=== PATIENT | female | born 1975 | race Hispanic/Latino ===

== ENCOUNTER 2023-04-20 23:36 | Emergency (ER) | payer OTHER ==
--- OUTSIDE RECORDS SUMMARY | 2023-04-20 23:41 | XMS REPORT | Continuity of Care Document ---
Author Name Unknown Address [address] [facility] [address] [place] [address] [facility] Address [address] [facility] [address] [place] [address] Care Team Providers Care Digital Content Specialist Name Role Phone PROSPER DALLAS Primary Care Physician Unavailab PROSPER Novoa Attending Clinician Unavailable BELLE CASTELLANOS Attending Clinician BELLE Allen Attending Clinician [facility]OR[facility] Attending Clinician [phone] Pob, [facility] Main Attending Clinician Unavailabl e Doctor Unassigned, [place] Attending Clinician U navailable Nel GUZMAN Attending Clinician Unavailable Nel Mcnally Attending Clinician [phone] KEVIN FUENTES Attending Clinician Unavailable PROSPER DALLAS Admitting Clinician Unavailable Payers Payer Name Policy Type Policy Number Effective Date Expirati on Date Source [facility] [id number] 2022 00:00:00 Problems Condition Name Condition Details Condition Category Status Onset Date Resolution Date Last Treatment Date Treating Clinician Comments Source Type II or unspecifie d type diabetes mellitus with ketoacidos is, uncontroll ed(250.12) Type II or unspecifie d type diabetes mellitus with ketoacidos is, uncontroll ed(250.12) Disease Active 04-11 00:00: 00 [facility] Abnormal uterine bleeding (AUB) Abnormal uterine bleeding (AUB) Disease Active 04-11 00:00: 00 [facility] BMI 36.0-36.9, adult BMI 36.0-36.9, adult Disease Active 02-22 00:00: 00 [facility] Elevated blood pressure reading without diagnosis of hypertensi on Elevated blood pressure reading without diagnosis of hypertensi on Disease Active 02-22 00:00: 00 [facility] Opioid withdrawal Opioid withdrawal Disease Active 05-09 00:00: 00 [facility] Tibial plateau fracture Tibial plateau fracture Disease Active 03-13 00:00: 00 [facility] History of tubal ligation History of tubal ligation Disease Active 2013-02 00:00: 00 [facility] Bipolar affective disorder, depressed Bipolar affective disorder, depressed Disease Active 03-19 00:00: 00 [facility] Allergies, Adverse Reactions, Alerts Allergy Name Allergy Type Status Severity Reaction(s) Onset Date Inactive Date Treating Clinician Comments Source NO KNOWN ALLERGIE S Drug Class Active [facility] Social History Social Habit Start Date Stop Date Quantity Comments [facility] 2023-04-14 00:00:00 2023-04-14 00:00:00 Current drinker of alcohol (finding) [facility] Tobacco use and exposure 2023-02-17 00:00:00 2023-02-17 00:00:00 Smokeless tobacco non-user [facility] Exposure to SARS-CoV-2 (event) 2022-03-16 00:00:00 2022-03-26 21:36:00 Not sure [facility] History of Social function 2018-08-23 00:00:00 2018-08-23 00:00:00 [facility] Alcohol Comment 2018-02-22 00:00:00 2018-02-22 00:00:00 occasionally [facility] History of tobacco use 2017-08-13 00:00:00 Cigarette Smoker [facility] Sex Assigned At 1975 00:00:00 1975 00:00:00 [facility] Smoking Status Start Date Stop Date Source Ex-smoker 2023-02-17 00:00:00 2023-02-17 00:00:00 [facility] Medications Ordered Medication Name Filled Medication Name Start Date Stop Date Current Medication? Ordering Clinician Indication Dosage Frequency Signature (SIG) Comments Components Source metFORMIN 500 mg tablet 2023-0 04-13 00:00: 00 Yes [id number] 500mg Take 1 tablet by mouth in the morning and 1 tablet in the evening. Take with meals. [facility] atorvastati n (LIPITOR) 10 mg tablet 2023-0 04-13 00:00: 00 Yes [id number] 10mg Take 1 tablet by mouth at bedtime. [facility] metFORMIN 500 mg tablet 2023-0 04-13 00:00: 00 Yes [id number] 500mg Take 1 tablet by mouth in the morning and 1 tablet in the evening. Take with meals. [facility] atorvastati n (LIPITOR) 10 mg tablet 2023-0 04-13 00:00: 00 Yes [id number] 10mg Take 1 tablet by mouth at bedtime. [facility] metFORMIN 500 mg tablet 2023-0 04-13 00:00: 00 Yes [id number] 500mg Take 1 tablet by mouth in the morning and 1 tablet in the evening. Take with meals. [facility] atorvastati n (LIPITOR) 10 mg tablet 2023-0 04-13 00:00: 00 Yes [id number] 10mg Take 1 tablet by mouth at bedtime. [facility] metFORMIN 500 mg tablet 4-0 04-13 00:00: 00 Yes [id number] 500mg Take 1 tablet by mouth in the morning and 1 tablet in the evening. Take with meals. [facility] atorvastati n (LIPITOR) 10 mg tablet 4-0 04-13 00:00: 00 Yes [id number] 10mg Take 1 tablet by mouth at bedtime. [facility] metFORMIN 500 mg tablet 4-0 04-13 00:00: 00 Yes [id number] 500mg Take 1 tablet by mouth in the morning and 1 tablet in the evening. Take with meals. [facility] atorvastati n (LIPITOR) 10 mg tablet 0 04-13 00:00: 00 Yes [id number] 10mg Take 1 tablet by mouth at bedtime. [facility] traZODone 50 mg tablet 2023-0 03-17 10:25: 58 Yes 50mg Take 1 tablet by mouth at bedtime. [facility] OLANZapine 20 mg tablet 2023-0 03-17 10:25: 58 Yes 20mg Take 1 tablet by mouth at bedtime. [facility] traZODone 50 mg tablet 2023-0 03-17 10:25: 58 Yes 50mg Take 1 tablet by mouth at bedtime. [facility] OLANZapine 20 mg tablet 2023-0 03-17 10:25: 58 Yes 20mg Take 1 tablet by mouth at bedtime. [facility] traZODone 50 mg tablet 2023-0 03-17 10:25: 58 Yes 50mg Take 1 tablet by mouth at bedtime. [facility] OLANZapine 20 mg tablet 2023-0 03-17 10:25: 58 Yes 20mg Take 1 tablet by mouth at bedtime. [facility] traZODone 50 mg tablet 2023-0 03-17 10:25: 58 Yes 50mg Take 1 tablet by mouth at bedtime. [facility] OLANZapine 20 mg tablet 2023-0 2 10:25: 58 Yes 20mg Take 1 tablet by mouth at bedtime. [facility] traZODone 50 mg tablet 2023-0 03-17 10:25: 58 Yes 50mg Take 1 tablet by mouth at bedtime. [facility] OLANZapine 20 mg tablet 2023-0 2 10:25: 58 Yes 20mg Take 1 tablet by mouth at bedtime. [facility] traZODone 50 mg tablet 2023-0 2 10:25: 58 Yes 50mg Take 1 tablet by mouth at bedtime. [facility] OLANZapine 20 mg tablet 2023-0 2- 10:25: 58 Yes 20mg Take 1 tablet by mouth at bedtime. [facility] traZODone 50 mg tablet 2023-0 03-17 10:25: 58 Yes 50mg Take 1 tablet by mouth at bedtime. [facility] OLANZapine 20 mg tablet 2023-0 03-17 10:25: 58 Yes 20mg Take 1 tablet by mouth at bedtime. [facility] traZODone 50 mg tablet 2023-0 03-17 10:25: 58 Yes 50mg Take 1 tablet by mouth at bedtime. [facility] OLANZapine 20 mg tablet 2023-0 03-17 10:25: 58 Yes 20mg Take 1 tablet by mouth at bedtime. [facility] traZODone 50 mg tablet 2023-0 03-17 10:25: 58 Yes 50mg Take 1 tablet by mouth at bedtime. [facility] OLANZapine 20 mg tablet 2023-0 03-17 10:25: 58 Yes 20mg Take 1 tablet by mouth at bedtime. [facility] traZODone 50 mg tablet 2023-0 03-17 10:25: 58 Yes 50mg Take 1 tablet by mouth at bedtime. [facility] OLANZapine 20 mg tablet 2023-0 03-17 10:25: 58 Yes 20mg Take 1 tablet by mouth at bedtime. [facility] traZODone 50 mg tablet 2023-0 03-17 10:25: 58 Yes 50mg Take 1 tablet by mouth at bedtime. [facility] OLANZapine 20 mg tablet 2023-0 03-17 10:25: 58 Yes 20mg Take 1 tablet by mouth at bedtime. [facility] traZODone 50 mg tablet 2023-0 03-17 10:25: 58 Yes 50mg Take 1 tablet by mouth at bedtime. [facility] OLANZapine 20 mg tablet 2023-0 03-17 10:25: 58 Yes 20mg Take 1 tablet by mouth at bedtime. [facility] traZODone 50 mg tablet 2023-0 03-17 10:25: 58 Yes 50mg Take 1 tablet by mouth at bedtime. [facility] OLANZapine 20 mg tablet 2023-0 03-17 10:25: 58 Yes 20mg Take 1 tablet by mouth at bedtime. [facility] traZODone 50 mg tablet 2023-0 03-17 10:25: 58 Yes 50mg Take 1 tablet by mouth at bedtime. [facility] OLANZapine 20 mg tablet 2023-0 03-17 10:25: 58 Yes 20mg Take 1 tablet by mouth at bedtime. [facility] traZODone 50 mg tablet 2023-0 03-17 10:25: 58 Yes 50mg Take 1 tablet by mouth at bedtime. [facility] OLANZapine 20 mg tablet 2023-0 03-17 10:25: 58 Yes 20mg Take 1 tablet by mouth at bedtime. [facility] amLODIPine 5 mg tablet 0 03-17 00:00: 00 Yes [id number] 5mg Take 1 tablet by mouth in the morning. [facility] amLODIPine 5 mg tablet 2023-0 03-17 00:00: 00 Yes [id number] 5mg Take 1 tablet by mouth in the morning. [facility] amLODIPine 5 mg tablet 2023-0 03-17 00:00: 00 Yes [id number] 5mg Take 1 tablet by mouth in the morning. [facility] amLODIPine 5 mg tablet 2023-0 03-17 00:00: 00 Yes [id number] 5mg Take 1 tablet by mouth in the morning. [facility] amLODIPine 5 mg tablet 2023-0 03-17 00:00: 00 Yes [id number] 5mg Take 1 tablet by mouth in the morning. [facility] amLODIPine 5 mg tablet 2023-0 03-17 00:00: 00 Yes [id number] 5mg Take 1 tablet by mouth in the morning. [facility] amLODIPine 5 mg tablet 2023-0 03-17 00:00: 00 Yes [id number] 5mg Take 1 tablet by mouth in the morning. [facility] amLODIPine 5 mg tablet 2023-0 03-17 00:00: 00 Yes [id number] 5mg Take 1 tablet by mouth in the morning. [facility] amLODIPine 5 mg tablet 03-17 00:00: 00 Yes [id number] 5mg Take 1 tablet by mouth in the morning. [facility] amLODIPine 5 mg tablet 03-17 00:00: 00 Yes [id number] 5mg Take 1 tablet by mouth in the morning. [facility] amLODIPine 5 mg tablet 03-17 00:00: 00 Yes [id number] 5mg Take 1 tablet by mouth in the morning. [facility] amLODIPine 5 mg tablet 03-17 00:00: 00 Yes [id number] 5mg Take 1 tablet by mouth in the morning. [facility] amLODIPine 5 mg tablet 03-17 00:00: 00 Yes [id number] 5mg Take 1 tablet by mouth in the morning. [facility] amLODIPine 5 mg tablet 03-17 00:00: 00 Yes [id number] 5mg Take 1 tablet by mouth in the morning. [facility] amoxicillin 875 mg tablet 03-17 00:00: 00 03-28 05:59 :00 Yes [id number] 875mg Take 1 tablet by mouth in the morning and 1 tablet in the evening. Do all this for 10 days. [facility] amoxicillin 875 mg tablet 03-17 00:00: 00 03-28 05:59 :00 Yes [id number] 875mg Take 1 tablet by mouth in the morning and 1 tablet in the evening. Do all this for 10 days. [facility] amoxicillin 875 mg tablet 03-17 00:00: 00 03-28 05:59 :00 Yes [id number] 875mg Take 1 tablet by mouth in the morning and 1 tablet in the evening. Do all this for 10 days. [facility] amoxicillin 875 mg tablet 03-17 00:00: 00 03-28 05:59 :00 Yes [id number] 875mg Take 1 tablet by mouth in the morning and 1 tablet in the evening. Do all this for 10 days. [facility] amoxicillin 875 mg tablet 03-17 00:00: 00 03-28 05:59 :00 Yes [id number] 875mg Take 1 tablet by mouth in the morning and 1 tablet in the evening. Do all this for 10 days. [facility] acetaminoph en with codeine (TYLENOL-CO DEINE #3 ORAL) 03-07 14:14: 36 Yes Take by mouth. [facility] acetaminoph en with codeine (TYLENOL-CO DEINE #3 ORAL) 03-07 14:14: 36 Yes Take by mouth. [facility] acetaminoph en with codeine (TYLENOL-CO DEINE #3 ORAL) 03-07 14:14: 36 Yes Take by mouth. [facility] acetaminoph en with codeine (TYLENOL-CO DEINE #3 ORAL) 03-07 14:14: 36 Yes Take by mouth. [facility] acetaminoph en with codeine (TYLENOL-CO DEINE #3 ORAL) 03-07 14:14: 36 Yes Take by mouth. [facility] acetaminoph en with codeine (TYLENOL-CO DEINE #3 ORAL) 03-07 14:14: 36 Yes Take by mouth. [facility] acetaminoph en with codeine (TYLENOL-CO DEINE #3 ORAL) 03-07 14:14: 36 Yes Take by mouth. [facility] acetaminoph en with codeine (TYLENOL-CO DEINE #3 ORAL) 03-07 14:14: 36 Yes Take by mouth. [facility] acetaminoph en with codeine (TYLENOL-CO DEINE #3 ORAL) 03-07 14:14: 36 Yes Take by mouth. [facility] acetaminoph en with codeine (TYLENOL-CO DEINE #3 ORAL) 03-07 14:14: 36 Yes Take by mouth. [facility] acetaminoph en with codeine (TYLENOL-CO DEINE #3 ORAL) 03-07 14:14: 36 Yes Take by mouth. [facility] acetaminoph en with codeine (TYLENOL-CO DEINE #3 ORAL) 03-07 14:14: 36 Yes Take by mouth. [facility] acetaminoph en with codeine (TYLENOL-CO DEINE #3 ORAL) 03-07 14:14: 36 Yes Take by mouth. [facility] acetaminoph en with codeine (TYLENOL-CO DEINE #3 ORAL) 03-07 14:14: 36 Yes Take by mouth. [facility] acetaminoph en with codeine (TYLENOL-CO DEINE #3 ORAL) 03-07 14:14: 36 Yes Take by mouth. [facility] acetaminoph en with codeine (TYLENOL-CO DEINE #3 ORAL) 03-07 14:14: 36 Yes Take by mouth. [facility] acetaminoph en with codeine (TYLENOL-CO DEINE #3 ORAL) 03-07 14:14: 36 Yes Take by mouth. [facility] acetaminoph en with codeine (TYLENOL-CO DEINE #3 ORAL) 03-07 14:14: 36 Yes Take by mouth. [facility] traZODone 50 mg tablet 03-07 14:14: 13 Yes 50mg Take 1 tablet by mouth at bedtime. [facility] OLANZapine 20 mg tablet 03-07 14:14: 13 Yes 20mg Take 1 tablet by mouth at bedtime. [facility] traZODone 50 mg tablet 03-07 14:14: 13 Yes 50mg Take 1 tablet by mouth at bedtime. [facility] OLANZapine 20 mg tablet 03-07 14:14: 13 Yes 20mg Take 1 tablet by mouth at bedtime. [facility] traZODone 50 mg tablet 03-07 14:14: 13 Yes 50mg Take 1 tablet by mouth at bedtime. [facility] OLANZapine 20 mg tablet 03-07 14:14: 13 Yes 20mg Take 1 tablet by mouth at bedtime. [facility] traZODone 50 mg tablet 0 03-07 14:14: 13 Yes 50mg Take 1 tablet by mouth at bedtime. [facility] OLANZapine 20 mg tablet 0 03-07 14:14: 13 Yes 20mg Take 1 tablet by mouth at bedtime. [facility] OLANZapine 20 mg tablet 0 02-17 09:56: 19 Yes 20mg Take 1 tablet by mouth at bedtime. [facility] OLANZapine 20 mg tablet 0 02-17 09:56: 19 Yes 20mg Take 1 tablet by mouth at bedtime. [facility] OLANZapine 20 mg tablet 0 02-17 09:56: 19 Yes 20mg Take 1 tablet by mouth at bedtime. [facility] OLANZapine 20 mg tablet 0 02-17 09:56: 19 Yes 20mg Take 1 tablet by mouth at bedtime. [facility] traZODone 50 mg tablet 0 02-17 09:55: 46 Yes 50mg Take 1 tablet by mouth at bedtime. [facility] traZODone 50 mg tablet 0 02-17 09:55: 46 Yes 50mg Take 1 tablet by mouth at bedtime. [facility] traZODone 50 mg tablet 0 02-17 09:55: 46 Yes 50mg Take 1 tablet by mouth at bedtime. [facility] traZODone 50 mg tablet 0 02-17 09:55: 46 Yes 50mg Take 1 tablet by mouth at bedtime. [facility] cefdinir 300 mg capsule 0 02-17 00:00: 00 02-28 05:59 :00 Yes [id number] 300mg Take 1 capsule by mouth every 12 (twelve) hours for 10 days. [facility] cefdinir 300 mg capsule 2023-0 02-17 00:00: 00 02-28 05:59 :00 Yes [id number] 300mg Take 1 capsule by mouth every 12 (twelve) hours for 10 days. [facility] cefdinir 300 mg capsule 1-05 00:00: 00 02-28 05:59 :00 Yes [id number] 300mg Take 1 capsule by mouth every 12 (twelve) hours for 10 days. [facility] cefdinir 300 mg capsule 1-05 00:00: 00 02-28 05:59 :00 No [id number] 300mg Take 1 capsule by mouth every 12 (twelve) hours for 10 days. [facility] amLODIPine (NORVASC) tablet 5 mg 03-27 05:30: 00 03-27 04:38 :00 No 5mg 5 mg, Oral, ONCE, 1 dose, On 03/26/22 at 2330, Routine [facility] ibuprofen (IBU) tablet 600 mg 03-27 04:00: 00 03-27 03:59 :00 No 600mg 600 mg, Oral, ONCE, 1 dose, On 03/26/22 at 2200, NELIA [facility] amoxicillin (TRIMOX) capsule 500 mg 03-27 04:00: 00 03-27 03:58 :00 No 500mg 500 mg, Oral, ONCE, 1 dose, On 03/26/22 at 2200, NELIA
Re ason for Anti-Infec tive: Empiric Therapy for Suspected Infection< br>Empiric Therapy Site: HEENT
D uration of therapy: 5 days [facility] ibuprofen 600 mg tablet 03-26 00:00: 00 Yes [id number] 600mg Take 1 tablet by mouth every 6 (six) hours as needed for Pain (scale 4-6). [facility] amLODIPine 2.5 mg tablet 03-26 00:00: 00 Yes [id number] 2.5mg Take 1 tablet by mouth at bedtime. [facility] ibuprofen 600 mg tablet 03-26 00:00: 00 Yes [id number] 600mg Take 1 tablet by mouth every 6 (six) hours as needed for Pain (scale 4-6). [facility] amLODIPine 2.5 mg tablet 211 00:00: 00 Yes [id number] 2.5mg Take 1 tablet by mouth at bedtime. [facility] ibuprofen 600 mg tablet 03-26 00:00: 00 02-17 00:00 :00 No [id number] 600mg Take 1 tablet by mouth every 6 (six) hours as needed for Pain (scale 4-6). [facility] amLODIPine 2.5 mg tablet 03-26 00:00: 00 02-17 00:00 :00 No [id number] 2.5mg Take 1 tablet by mouth at bedtime. [facility] ibuprofen 600 mg tablet 03-26 00:00: 00 02-17 00:00 :00 No [id number] 600mg Take 1 tablet by mouth every 6 (six) hours as needed for Pain (scale 4-6). [facility] amLODIPine 2.5 mg tablet 03-26 00:00: 00 02-17 00:00 :00 No [id number] 2.5mg Take 1 tablet by mouth at bedtime. [facility] ibuprofen 600 mg tablet 03-26 00:00: 00 02-17 00:00 :00 No [id number] 600mg Take 1 tablet by mouth every 6 (six) hours as needed for Pain (scale 4-6). [facility] amLODIPine 2.5 mg tablet 03-26 00:00: 00 02-17 00:00 :00 No [id number] 2.5mg Take 1 tablet by mouth at bedtime. [facility] amoxicillin 500 mg capsule 0 11 00:00: 00 04-06 05:59 :00 No [id number] 500mg Take 1 capsule by mouth in the morning and 1 capsule at noon and 1 capsule in the evening. Do all this for 10 days. [facility] ketorolac 10 mg tablet 2017-02 00:00: 00 Yes 10mg Take 1 tablet by mouth every 6 (six) hours as needed for Pain (scale 4-6). [facility] cyclobenzap rine 5 mg tablet 2017-02 00:00: 00 Yes 5mg Take 1 tablet by mouth 3 (three) times daily. [facility] ketorolac 10 mg tablet 2017-02 00:00: 00 Yes 10mg Take 1 tablet by mouth every 6 (six) hours as needed for Pain (scale 4-6). [facility] cyclobenzap rine 5 mg tablet 2017-02 00:00: 00 Yes 5mg Take 1 tablet by mouth 3 (three) times daily. [facility] ketorolac 10 mg tablet 2017-02 00:00: 00 Yes 10mg Take 1 tablet by mouth every 6 (six) hours as needed for Pain (scale 4-6). [facility] cyclobenzap rine 5 mg tablet 2017-02 00:00: 00 Yes 5mg Take 1 tablet by mouth 3 (three) times daily. [facility] ketorolac 10 mg tablet 2017-02 00:00: 00 Yes 10mg Take 1 tablet by mouth every 6 (six) hours as needed for Pain (scale 4-6). [facility] cyclobenzap rine 5 mg tablet 2017-02 00:00: 00 Yes 5mg Take 1 tablet by mouth 3 (three) times daily. [facility] ketorolac 10 mg tablet 2017-02 00:00: 00 02-17 00:00 :00 No 10mg Take 1 tablet by mouth every 6 (six) hours as needed for Pain (scale 4-6). [facility] cyclobenzap rine 5 mg tablet 2017-02 00:00: 00 02-17 00:00 :00 No 5mg Take 1 tablet by mouth 3 (three) times daily. [facility] ketorolac 10 mg tablet 2017-02 00:00: 00 02-17 00:00 :00 No 10mg Take 1 tablet by mouth every 6 (six) hours as needed for Pain (scale 4-6). [facility] cyclobenzap rine 5 mg tablet 2017-02 00:00: 02-17 00:00 :00 No 5mg Take 1 tablet by mouth 3 (three) times daily. [facility] ketorolac 10 mg tablet 2017-02 00:00: 02-17 00:00 :00 No 10mg Take 1 tablet by mouth every 6 (six) hours as needed for Pain (scale 4-6). [facility] cyclobenzap rine 5 mg tablet 2017-02 00:00: 00 02-17 00:00 :00 No 5mg Take 1 tablet by mouth 3 (three) times daily. [facility] ibuprofen 800 mg tablet 05-17 00:00: 00 Yes [id number] 800mg Take 1 tablet by mouth 2 (two) times daily with meals. [facility] ibuprofen 800 mg tablet 05-17 00:00: 00 Yes [id number] 800mg Take 1 tablet by mouth 2 (two) times daily with meals. [facility] ibuprofen 800 mg tablet 05-17 00:00: 00 Yes [id number] 800mg Take 1 tablet by mouth 2 (two) times daily with meals. [facility] ibuprofen 800 mg tablet 05-17 00:00: 00 Yes [id number] 800mg Take 1 tablet by mouth 2 (two) times daily with meals. [facility] ibuprofen 800 mg tablet 05-17 00:00: 02-17 00:00 :00 No [id number] 800mg Take 1 tablet by mouth 2 (two) times daily with meals. [facility] ibuprofen 800 mg tablet 05-17 00:00: 00 02-17 00:00 :00 No [id number] 800mg Take 1 tablet by mouth 2 (two) times daily with meals. [facility] ibuprofen 800 mg tablet 05-17 00:00: 00 02-17 00:00 :00 No [id number] 800mg Take 1 tablet by mouth 2 (two) times daily with meals. [facility] risperiDONE (RISPERDAL) 1 mg tablet 2013-02 00:00: 00 Yes 1mg Take 1 Tab by mouth 2 (two) times daily. [facility] escitalopra m oxalate (LEXAPRO) 10 mg tablet 2013-02 00:00: 00 Yes 10mg Take 1 Tab by mouth daily. [facility] divalproex (DEPAKOTE) 500 mg EC tablet 2013-02 00:00: 00 Yes 1500mg Take 3 Tabs by mouth at bedtime. [facility] risperiDONE (RISPERDAL) 1 mg tablet 2013-02 00:00: 00 Yes 1mg Take 1 Tab by mouth 2 (two) times daily. [facility] escitalopra m oxalate (LEXAPRO) 10 mg tablet 2013-02 00:00: 00 Yes 10mg Take 1 Tab by mouth daily. [facility] escitalopra m oxalate (LEXAPRO) 10 mg tablet 2013-02 00:00: 00 Yes 10mg Take 1 Tab by mouth daily. [facility] divalproex (DEPAKOTE) 500 mg EC tablet 2013-02 00:00: 00 Yes 1500mg Take 3 Tabs by mouth at bedtime. [facility] escitalopra m oxalate (LEXAPRO) 10 mg tablet 2013-02 00:00: 00 Yes 10mg Take 1 Tab by mouth daily. [facility] escitalopra m oxalate (LEXAPRO) 10 mg tablet 2013-02 00:00: 00 Yes 10mg Take 1 Tab by mouth daily. [facility] escitalopra m oxalate (LEXAPRO) 10 mg tablet 2013-02 00:00: 00 Yes 10mg Take 1 Tab by mouth daily. [facility] escitalopra m oxalate (LEXAPRO) 10 mg tablet 2013-02 00:00: 00 Yes 10mg Take 1 Tab by mouth daily. [facility] escitalopra m oxalate (LEXAPRO) 10 mg tablet 2013-02 00:00: 00 Yes 10mg Take 1 Tab by mouth daily. [facility] escitalopra m oxalate (LEXAPRO) 10 mg tablet 2013-02 00:00: 00 Yes 10mg Take 1 Tab by mouth daily. [facility] escitalopra m oxalate (LEXAPRO) 10 mg tablet 2013-02 00:00: 00 Yes 10mg Take 1 Tab by mouth daily. [facility] Services risperiDONE (RISPERDAL) 1 mg tablet 2013-02 00:00: 00 Yes 1mg Take 1 Tab by mouth 2 (two) times daily. [facility] escitalopra m oxalate (LEXAPRO) 10 mg tablet 2013-02 00:00: 00 Yes 10mg Take 1 Tab by mouth daily. [facility] divalproex (DEPAKOTE) 500 mg EC tablet 2013-02 00:00: 00 Yes 1500mg Take 3 Tabs by mouth at bedtime. [facility] escitalopra m oxalate (LEXAPRO) 10 mg tablet 2013-02 00:00: 00 Yes 10mg Take 1 Tab by mouth daily. [facility] escitalopra m oxalate (LEXAPRO) 10 mg tablet 2013-02 00:00: 00 Yes 10mg Take 1 Tab by mouth daily. [facility] escitalopra m oxalate (LEXAPRO) 10 mg tablet 2013-02 00:00: 00 Yes 10mg Take 1 Tab by mouth daily. [facility] escitalopra m oxalate (LEXAPRO) 10 mg tablet 2013-02 00:00: 00 Yes 10mg Take 1 Tab by mouth daily. [facility] escitalopra m oxalate (LEXAPRO) 10 mg tablet 2013-02 00:00: 00 Yes 10mg Take 1 Tab by mouth daily. [facility] escitalopra m oxalate (LEXAPRO) 10 mg tablet 2013-02 00:00: 00 Yes 10mg Take 1 Tab by mouth daily. [facility] escitalopra m oxalate (LEXAPRO) 10 mg tablet 2013-02 00:00: 00 Yes 10mg Take 1 Tab by mouth daily. [facility] escitalopra m oxalate (LEXAPRO) 10 mg tablet 2013-02 00:00: 00 Yes 10mg Take 1 Tab by mouth daily. [facility] escitalopra m oxalate (LEXAPRO) 10 mg tablet 2013-02 00:00: 00 Yes 10mg Take 1 Tab by mouth daily. [facility] escitalopra m oxalate (LEXAPRO) 10 mg tablet 2013-02 00:00: 00 Yes 10mg Take 1 Tab by mouth daily. [facility] escitalopra m oxalate (LEXAPRO) 10 mg tablet 2013-02 00:00: 00 Yes 10mg Take 1 Tab by mouth daily. [facility] escitalopra m oxalate (LEXAPRO) 10 mg tablet 2013-02 00:00: 00 Yes 10mg Take 1 Tab by mouth daily. [facility] escitalopra m oxalate (LEXAPRO) 10 mg tablet 2013-02 00:00: 00 Yes 10mg Take 1 Tab by mouth daily. [facility] escitalopra m oxalate (LEXAPRO) 10 mg tablet 2013-02 00:00: 00 Yes 10mg Take 1 Tab by mouth daily. [facility] escitalopra m oxalate (LEXAPRO) 10 mg tablet 2013-02 00:00: 00 Yes 10mg Take 1 Tab by mouth daily. [facility] risperiDONE (RISPERDAL) 1 mg tablet 2013-02 00:00: 00 Yes 1mg Take 1 Tab by mouth 2 (two) times daily. [facility] escitalopra m oxalate (LEXAPRO) 10 mg tablet 2013-02 00:00: 00 Yes 10mg Take 1 Tab by mouth daily. [facility] divalproex (DEPAKOTE) 500 mg EC tablet 2013-02 00:00: 00 Yes 1500mg Take 3 Tabs by mouth at bedtime. [facility] risperiDONE (RISPERDAL) 1 mg tablet 2013-02 00:00: 00 02-17 00:00 :00 No 1mg Take 1 Tab by mouth 2 (two) times daily. [facility] divalproex (DEPAKOTE) 500 mg EC tablet 2013-02 00:00: 00 02-17 00:00 :00 No 1500mg Take 3 Tabs by mouth at bedtime. [facility] risperiDONE (RISPERDAL) 1 mg tablet 2013-02 00:00: 00 02-17 00:00 :00 No 1mg Take 1 Tab by mouth 2 (two) times daily. [facility] divalproex (DEPAKOTE) 500 mg EC tablet 2013-02 00:00: 00 02-17 00:00 :00 No 1500mg Take 3 Tabs by mouth at bedtime. [facility] risperiDONE (RISPERDAL) 1 mg tablet 2013-02 00:00: 00 02-17 00:00 :00 No 1mg Take 1 Tab by mouth 2 (two) times daily. [facility] divalproex (DEPAKOTE) 500 mg EC tablet 2013-02 00:00: 00 02-17 00:00 :00 No 1500mg Take 3 Tabs by mouth at bedtime. [facility] Immunizations Ordered Immunization Name Filled Immunization Name Date Status Comments Source Influenza Virus Vaccine Quad IM Multi-dose 6+ MO 2013-12-26 00:00:00 Completed [facility] Influenza Virus Vaccine Quad IM Multi-dose 6+ MO 2013-12-26 00:00:00 Completed [facility] Influenza Virus Vaccine Quad IM Multi-dose 6+ MO 2013-12-26 00:00:00 Completed [facility] Tdap 2013-12-12 00:00:00 Completed [facility] Tdap 2013-12-12 00:00:00 Completed [facility] TDAP 2013-12-12 00:00:00 Completed [facility] Rubella 2011-02-21 00:00:00 Completed [facility] Rubella 2011-02-21 00:00:00 Completed [facility] Rubella 2011-02-21 00:00:00 Completed [facility] Influenza Virus Vaccine 2010-04-24 00:00:00 Completed [facility] Influenza Virus Vaccine 2010-04-24 00:00:00 Completed [facility] Influenza Virus Vaccine 2010-04-24 00:00:00 Completed [facility] Td 2009-02-24 00:00:00 Completed [facility] Varicella (varivax)(chicken pox) 2009-02-24 00:00:00 Completed [facility] Td 2009-02-24 00:00:00 Completed [facility] Varicella (varivax)(chicken pox) 2009-02-24 00:00:00 Completed [facility] TD, NOS 2009-02-24 00:00:00 Completed [facility] Varicella (varivax)(chicken pox) 2009-02-24 00:00:00 Completed [facility] Influenza Virus Vaccine Unknown Completed [facility] Rubella Unknown Completed [facility] TD, NOS Unknown Completed [facility] Varicella (varivax)(chicken pox) Unknown Completed [facility] TDAP Unknown Completed [facility] Influenza Virus Vaccine Quad IM Multi-dose 6+ MO Unknown Completed [facility] Influenza Virus Vaccine Unknown Completed [facility] Rubella Unknown Completed [facility] TD, NOS Unknown Completed [facility] Varicella (varivax)(chicken pox) Unknown Completed [facility] TDAP Unknown Completed [facility] Influenza Virus Vaccine Quad IM Multi-dose 6+ MO Unknown Completed [facility] Influenza Virus Vaccine Unknown Completed [facility] Rubella Unknown Completed [facility] TD, NOS Unknown Completed [facility] Varicella (varivax)(chicken pox) Unknown Completed [facility] TDAP Unknown Completed [facility] Influenza Virus Vaccine Quad IM Multi-dose 6+ MO Unknown Completed [facility] Influenza Virus Vaccine Unknown Completed [facility] Rubella Unknown Completed [facility] TD, NOS Unknown Completed [facility] Varicella (varivax)(chicken pox) Unknown Completed [facility] TDAP Unknown Completed [facility] Influenza Virus Vaccine Quad IM Multi-dose 6+ MO Unknown Completed [facility] Influenza Virus Vaccine Unknown Completed [facility] Rubella Unknown Completed [facility] TD, NOS Unknown Completed [facility] Varicella (varivax)(chicken pox) Unknown Completed [facility] TDAP Unknown Completed [facility] Influenza Virus Vaccine Quad IM Multi-dose 6+ MO Unknown Completed [facility] Influenza Virus Vaccine Unknown Completed [facility] Rubella Unknown Completed [facility] TD, NOS Unknown Completed [facility] Varicella (varivax)(chicken pox) Unknown Completed [facility] TDAP Unknown Completed [facility] Influenza Virus Vaccine Quad IM Multi-dose 6+ MO Unknown Completed [facility] Influenza Virus Vaccine Unknown Completed [facility] Rubella Unknown Completed [facility] TD, NOS Unknown Completed [facility] Varicella (varivax)(chicken pox) Unknown Completed [facility] TDAP Unknown Completed [facility] Influenza Virus Vaccine Quad IM Multi-dose 6+ MO Unknown Completed [facility] Influenza Virus Vaccine Unknown Completed [facility] Rubella Unknown Completed [facility] TD, NOS Unknown Completed [facility] Varicella (varivax)(chicken pox) Unknown Completed [facility] TDAP Unknown Completed [facility] Influenza Virus Vaccine Quad IM Multi-dose 6+ MO Unknown Completed [facility] Influenza Virus Vaccine Unknown Completed [facility] Rubella Unknown Completed [facility] TD, NOS Unknown Completed [facility] Varicella (varivax)(chicken pox) Unknown Completed [facility] TDAP Unknown Completed [facility] Influenza Virus Vaccine Quad IM Multi-dose 6+ MO Unknown Completed [facility] Influenza Virus Vaccine Unknown Completed [facility] Rubella Unknown Completed [facility] TD, NOS Unknown Completed [facility] Varicella (varivax)(chicken pox) Unknown Completed [facility] TDAP Unknown Completed [facility] Influenza Virus Vaccine Quad IM Multi-dose 6+ MO Unknown Completed [facility] Influenza Virus Vaccine Unknown Completed [facility] Rubella Unknown Completed [facility] TD, NOS Unknown Completed [facility] Varicella (varivax)(chicken pox) Unknown Completed [facility] TDAP Unknown Completed [facility] Influenza Virus Vaccine Quad IM Multi-dose 6+ MO Unknown Completed [facility] Influenza Virus Vaccine Unknown Completed [facility] Rubella Unknown Completed [facility] TD, NOS Unknown Completed [facility] Varicella (varivax)(chicken pox) Unknown Completed [facility] TDAP Unknown Completed [facility] Influenza Virus Vaccine Quad IM Multi-dose 6+ MO Unknown Completed [facility] Influenza Virus Vaccine Unknown Completed [facility] Rubella Unknown Completed [facility] TD, NOS Unknown Completed [facility] Varicella (varivax)(chicken pox) Unknown Completed [facility] TDAP Unknown Completed [facility] Influenza Virus Vaccine Quad IM Multi-dose 6+ MO Unknown Completed [facility] Influenza Virus Vaccine Unknown Completed [facility] Rubella Unknown Completed [facility] TD, NOS Unknown Completed [facility] Varicella (varivax)(chicken pox) Unknown Completed [facility] TDAP Unknown Completed [facility] Influenza Virus Vaccine Quad IM Multi-dose 6+ MO Unknown Completed [facility] Influenza Virus Vaccine Unknown Completed [facility] Rubella Unknown Completed [facility] TD, NOS Unknown Completed [facility] Varicella (varivax)(chicken pox) Unknown Completed [facility] TDAP Unknown Completed [facility] Influenza Virus Vaccine Quad IM Multi-dose 6+ MO Unknown Completed [facility] Influenza Virus Vaccine Unknown Completed [facility] Rubella Unknown Completed [facility] TD, NOS Unknown Completed [facility] Varicella (varivax)(chicken pox) Unknown Completed [facility] TDAP Unknown Completed [facility] Influenza Virus Vaccine Quad IM Multi-dose 6+ MO Unknown Completed [facility] Influenza Virus Vaccine Unknown Completed [facility] Rubella Unknown Completed [facility] TD, NOS Unknown Completed [facility] Varicella (varivax)(chicken pox) Unknown Completed [facility] TDAP Unknown Completed [facility] Influenza Virus Vaccine Quad IM Multi-dose 6+ MO Unknown Completed [facility] Influenza Virus Vaccine Unknown Completed [facility] Rubella Unknown Completed [facility] TD, NOS Unknown Completed [facility] Varicella (varivax)(chicken pox) Unknown Completed [facility] TDAP Unknown Completed [facility] Influenza Virus Vaccine Quad IM Multi-dose 6+ MO Unknown Completed [facility] Influenza Virus Vaccine Unknown Completed [facility] Rubella Unknown Completed [facility] TD, NOS Unknown Completed [facility] Varicella (varivax)(chicken pox) Unknown Completed [facility] TDAP Unknown Completed [facility] Influenza Virus Vaccine Quad IM Multi-dose 6+ MO Unknown Completed [facility] Influenza Virus Vaccine Unknown Completed [facility] Rubella Unknown Completed [facility] TD, NOS Unknown Completed [facility] Varicella (varivax)(chicken pox) Unknown Completed [facility] TDAP Unknown Completed [facility] Influenza Virus Vaccine Quad IM Multi-dose 6+ MO Unknown Completed [facility] Influenza Virus Vaccine Unknown Completed [facility] Rubella Unknown Completed [facility] TD, NOS Unknown Completed [facility] Varicella (varivax)(chicken pox) Unknown Completed [facility] TDAP Unknown Completed [facility] Influenza Virus Vaccine Quad IM Multi-dose 6+ MO Unknown Completed [facility] Influenza Virus Vaccine Unknown Completed [facility] Rubella Unknown Completed [facility] TD, NOS Unknown Completed [facility] Varicella (varivax)(chicken pox) Unknown Completed [facility] TDAP Unknown Completed [facility] Influenza Virus Vaccine Quad IM Multi-dose 6+ MO Unknown Completed [facility] Influenza Virus Vaccine Unknown Completed [facility] Rubella Unknown Completed [facility] TD, NOS Unknown Completed [facility] Varicella (varivax)(chicken pox) Unknown Completed [facility] TDAP Unknown Completed [facility] Influenza Virus Vaccine Quad IM Multi-dose 6+ MO Unknown Completed [facility] Influenza Virus Vaccine Unknown Completed [facility] Rubella Unknown Completed [facility] TD, NOS Unknown Completed [facility] Varicella (varivax)(chicken pox) Unknown Completed [facility] TDAP Unknown Completed [facility] Influenza Virus Vaccine Quad IM Multi-dose 6+ MO Unknown Completed [facility] Vital Signs Vital Name Observation Time Observation Value Comments S ource Systolic blood pressure 2023-04-14 15:45:00 132 mm[Hg] [facility] Diastolic blood pressure 2023-04-14 15:45:00 84 mm[Hg] [facility] Heart rate 2023-04-14 15:45:00 82 /min [facility] Body temperature 2023-04-14 15:45:00 36.39 Fatuma [facility] Respiratory rate 2023-04-14 15:45:00 18 /min [facility] Body height 2023-04-14 15:45:00 147[facility]3 [facility] 2023-04-14 15:45:00 78.019 kg [facility] BMI 2023-04-14 15:45:00 35.95 kg/m2 [facility] Oxygen saturation in Arterial blood by Pulse oximetry 2023-04-14 15:45:00 99 /min [facility] Systolic blood pressure 2023-04-11 16:08:00 128 mm[Hg] [facility] Diastolic blood pressure 2023-04-11 16:08:00 88 mm[Hg] [facility] Heart rate 2023-04-11 16:08:00 73 /min [facility] Body height 2023-04-11 16:08:00 147.3 cm [facility] Body weight 2023-04-11 16:08:00 78.155 kg [facility] BMI 2023-04-11 16:08:00 36.01 kg/m2 [facility] Systolic blood pressure 2023-03-17 16:17:00 144 mm[Hg] [facility] Diastolic blood pressure 2023-03-17 16:17:00 98 mm[Hg] [facility] Heart rate 2023-03-17 16:17:00 80 /min [facility] Body temperature 2023-03-17 16:17:00 36.67 Fatuma [facility] Respiratory rate 2023-03-17 16:17:00 17 /min [facility] Body height 2023-03-17 16:17:00 147[facility] 2023-03-17 16:17:00 76.567 kg [facility] BMI 2023-03-17 16:17:00 35.28 kg/m2 [facility] Oxygen saturation in Arterial blood by Pulse oximetry 2023-03-17 16:17:00 97 /min [facility] Systolic blood pressure 2023-03-07 20:23:00 160 mm[Hg] [facility] Diastolic blood pressure 2023-03-07 20:23:00 96 mm[Hg] [facility] Heart rate 2023-03-07 20:13:00 69 /min [facility] Respiratory rate 2023-03-07 20:13:00 18 /min [facility] Body height 2023-03-07 20:13:[address] [facility] Body weight 2023-03-07 20:13:[address] [facility] BMI 2023-03-07 20:13:00 35.95 kg/m2 [facility] Systolic blood pressure 2023-02-17 15:48:00 145 mm[Hg] [facility] Diastolic blood pressure 2023-02-17 15:48:00 97 mm[Hg] [facility] Heart rate 2023-02-17 15:45:00 75 /min [facility] Body temperature 2023-02-17 15:45:00 36.78 Fatuma [facility] Respiratory rate 2023-02-17 15:45:00 18 /min [facility] Body height 2023-02-17 15:45:00 147.3 cm [facility] Body weight 2023-02-17 15:45:[address] [facility] BMI 2023-02-17 15:45:00 35.15 kg/m2 [facility] Oxygen saturation in Arterial blood by Pulse oximetry 2023-02-17 15:45:00 99 /min [facility] Systolic blood pressure 2022-03-27 04:42:47 156 mm[Hg] [facility] Diastolic blood pressure 2022-03-27 04:42:47 109 mm[Hg] [facility] Heart rate 2022-03-27 04:42:47 81 /min [facility] Respiratory rate 2022-03-27 04:42:47 16 /min [facility] Oxygen saturation in Arterial blood by Pulse oximetry 2022-03-27 04:42:47 99 /min [place] [facility] Body temperature 2022-03-27 03:36:00 37.22 Fatuma [facility] Body height 2022-03-27 03:36:[address] [facility] Body weight 2022-03-27 03:36:[address] [facility] BMI 2022-03-27 03:36:00 36.58 kg/m2 [facility] Procedures Procedure Date / Time Performed Performing Clinician Source BI SCREENING TOMOSYNTHESIS BILATERAL 2023-04-13 16:33:07 [place] [facility] FREE T4 2023-03-17 17:01:00 [facility] THYROID STIMULATING HORMONE 2023-03-17 17:01:00 Prosper [place] [facility] COMP. METABOLIC PANEL (32692) 2023-03-17 17:01:00 Prosper [place] [facility] LIPID PANEL (90180)(TOTAL CHOLESTEROL, TRIGLYCERIDES, HDL) 2023-03-17 17:01:00 Prosper [place] [facility] CBC WITH DIFF 2023-03-17 17:01:[address] [facility] GLYCOSYLATED HEMOGLOBIN (A1C) 2023-03-17 17:01:00 Prosper [place] [facility] URINALYSIS 2023-03-17 17:01:00 Prosper [place] [facility] MAGNESIUM 2023-03-17 17:01:00 [place]per [place] [facility] POCT MOLECULAR STREP 2023-03-17 16:24:00 Yary [place] [facility] URINE CULTURE 2023-02-17 15:56:[address] [facility] CONSENT/REFUSAL FOR DIAGNOSIS AND TREATMENT 2023-02-17 15:32:36 Doctor Unassigned, [place] [facility] POCT URINALYSIS 2023-02-17 00:00[facility] PRIVACY PRACTICES 2022-03-27 03:31:10 Doctor Unassigned, [place] [facility] CONSENT/REFUSAL FOR DIAGNOSIS AND TREATMENT 2022-03-27 03:30:37 Doctor Unassigned, [place] [facility] AUTHORIZATION FOR RELEASE OF PHI 2019-05-13 05:01:00 Doctor Unassigned, [place] [facility] AUTHORIZATION FOR RELEASE OF PHI 2019-04-04 06:01:00 Doctor Unassigned, [place] [facility] Encounters Start Date/Time End Date/Time Encounter Type Admission Type Attending [facility] Care Department Encounter ID Source 2023-07-17 09:00:00 2023-07-17 09:00:00 Outpatient PROSPER PIZANO [facility] [id number] [facility] 2023-04-25 00:00:00 2023-04-25 00:00:00 Outpatient PROSPER PIZANO [facility] [id number] [facility] 2023-04-24 00:00:00 2023-04-24 00:00:00 Outpatient R PUGA-ROSHAN S, BELLE PUGA-ROSHAN S, BELLE [facility] [id number] [facility] 2023-04-17 00:00:00 2023-04-17 00:00:00 Outpatient R PUGA-ROSHAN S, BELLE PUGA-ROSHAN S, BELLE [facility] [id number] [facility] 2023-04-17 00:00:00 2023-04-17 00:00:00 Telephone Prosper [place] [facility] 1.2.840.114 350.1.13.10 4.2.7.2.686 [id number] [facility] 2023-04-14 11:15:00 2023-04-14 11:30:00 Author'S Agent Visit Pob, Adc Lab Main [place] [facility] 1.2.840.114 350.1.13.10 4.2.7.2.686 [id number] [facility] 2023-04-14 10:00:00 2023-04-14 10:00:00 Office Visit Prosper [place] [facility] 1.2.840.114 350.1.13.10 4.2.7.2.686 [id number] [facility] 2023-04-14 10:00:00 2023-04-14 09:56:26 [facility] [id number] [facility] 2023-04-14 00:00:00 2023-04-14 00:00:00 Telephone Prosper [place] [facility] 1..840.114 350.1.13.10 4.2.7.2.686 [id number] [facility] 2023-04-13 09:57:46 2023-04-13 23:59:00 [facility] [id number] [facility] 2023-04-13 09:40:00 2023-04-13 23:59:00 Hospital Encounter Prosper [place] [facility] 1..840.114 350.1.13.10 4.2.7.2.686 [id number] [facility] 2023-04-11 10:30:00 2023-04-11 10:30:00 [address] [place] [facility] 1.840.114 350.1.13.10 4.2.7.2.686 [id number] [facility] 2023-04-11 10:30:00 2023-04-11 10:15:26 Outpatient R BELLE AUGUSTINE MARISOL [facility] [id number] [facility] 2023-04-06 00:00:00 2023-04-06 00:00:[address] [place] [facility] 1.2840.114 350.1.13.10 4.2.7.2.686 [id number] [facility] 2023-03-24 00:00:00 2023-03-24 00:00:00 Outpatient R JOSUE DALLASSSICA [facility] [id number] [facility] 2023-03-17 10:50:07 2023-03-17 23:59:00 [facility] [id number] [facility] 2023-03-17 10:50:07 2023-03-17 23:59:00 Hospital Encounter Prosper [place] [facility] 1.2840.114 350.1.13.10 4.2.7.2.686 [id number] [facility] 2023-03-17 10:45:00 2023-03-17 11:00:00 Author'S Agent Visit Pob, Ad[facility] 1.2.840.114 350.1.13.10 4.2.7.2.686 [id number] [facility] 2023-03-17 10:00:00 2023-03-17 10:36:32 Office Visit Prosper [place] [facility] 1.2.840.114 350.1.13.10 4.2.7.2.686 [id number] [facility] 2023-03-13 00:00:00 2023-03-13 00:00:00 [facility] 1.2.840.114 350.1.13.10 4.2.7.2.686 [id number] [facility] 2023-03-07 14:00:00 2023-03-07 14:48:32 Outpatient R BELLE AUGUSTINE MARISOL [facility] [id number] [facility] 2023-03-07 14:00:00 2023-03-07 14:48:32 [facility] 1.0.114 350.1.13.10 4.2.7.2.686 [id number] [facility] 2023-03-03 00:00:00 2023-03-03 00:00:00 Patient Secure Msg Doctor Unassigned, [place] [facility] 1..114 350.1.13.10 4.2.7.2.686 [id number] [facility] 2023-02-17 09:30:00 2023-02-17 10:02:17 Outpatient R TODD PROSPER [facility] [id number] [facility] 2023-02-17 09:30:00 2023-02-17 10:02:17 Office Visit Todd Prosper [facility] 1..114 350.1.13.10 4.2.7.2.686 [id number] [facility] 2023-02-17 00:00:00 2023-02-17 00:00:00 Orders Only Doctor Unassigned, [place] [facility] 1.0.114 350.1.13.10 4.2.7.2.686 [id number] [facility] 2023-02-17 00:00:00 2023-02-17 00:00:00 Telephone [place]per [place] [facility] 1.0.114 350.1.13.10 4.2.7.2.686 [id number] [facility] 2022-03-26 21:40:00 2022-03-26 23:09:00 Emergency X Nel GUZMAN [facility] ERT [id number] [facility] 2022-03-26 21:40:00 2022-03-26 23:09:00 Emergency Nel Guzman [facility] 1.2.840.114 350.1.13.10 4.2.7.2.686 [id number] [facility] 2019-05-13 00:00:00 2019-05-13 00:00:00 Orders Only Doctor Unassigned, [place] [facility] 1.2.840.114 350.1.13.10 4.2.7.2.686 [id number] [facility] 2019-04-04 00:00:00 2019-04-04 00:00:00 Orders Only Doctor Unassigned, [place] [facility] 1.2.840.114 350.1.13.10 4.2.7.2.686 [id number] [facility] 2018-12-24 00:00:00 2018-12-24 00:00:00 Outpatient KEVIN SCOTT [facility] NUT [id number] [facility] Results Test Description Test Time Test Comments Results Resul t Comments Source BI SCREENING TOMOSYNTHESIS BILATERAL 2023-03-17 9 16:56:53 Examination:BI SCREENING TOMOSYNTHESIS BILATERAL History:Patient is 47 year old and is seen for: ?Screening for breast cancer. Computer-aided detection (CAD) utilized. Comparisons : None available Findings:The breasts are almost entirely fatty. LeftThere is a 4 mm x 4 mm equal density, round mass with circumscribed margins seen in the upper outer quadrant of the left breast in the posterior depth, 8.1 cm from the nipple. RightThere is no evidence of suspicious masses, calcifications, or other abnormal findings in the right breast. Impression:Small mass in the upper outer left breast is most likely an intramammary lymph node. ?Further evaluation is recommended for confirmation Recommendation:Spo t compression with possible ultrasound - LeftAnnual mammographic follow-up - Right BI-RADS Category: Left: 0 - Incomplete: Needs Additional Imaging EvaluationRight: 1 - NegativeOverall: 0 - Incomplete: Needs Additional [facility]63-68 19:00:13 * Test Item Value Reference Range Interpretation Comme nts TSH (test code = 6179009529) 1.23 0.45-4.70 Lab Interpretation (test cod e = 49278-1) Normal [facility] [id number] 18:46:13* Test Item Value Reference Range Interpretation Comme nts FREE T4 (test code = 2799164188) 1.29 0.78-2.20 Lab Interpretation (test cod e = 71332-1) Normal [facility] [id number] 18:46:13* Test Item Value Reference Range Interpretation Comme nts FREE T4 (test code = 1685918680) 1.29 0.78-2.20 Lab Interpretation (test cod e = 64358-2) Normal [facility] (71209)(Total Cholesterol, Triglycerides, HDL)2023-03-17 18:45:32* Test Item Value Reference Range Interpretation Comme nts CHOL (test code = 2158824188) 233 mg/dL 120-200 H HDL (test code = 5764853581) 54 mg/dL >=50 HDLC RATIO (test code = 4834027078) 4.3 <=4.5 TRIG (test code = 8336835082) 174 mg/dL 30-170 H LDL CHOL (test code = 66328-6) 144 mg/dL <=160 VLDL (test code = 5204986878) 35 mg/dL 5-60 Lab Interpretation (test cod e = 21026-3) Abnormal [facility] (57000)(Total Cholesterol, Triglycerides, HDL)2023-03-17 18:45:32* Test Item Value Reference Range Interpretation Comme nts CHOL (test code = 9215759390) 233 mg/dL 120-200 H HDL (test code = 9712158840) 54 mg/dL >=50 HDLC RATIO (test code = 5718004202) 4.3 <=4.5 TRIG (test code = 3860757239) 174 mg/dL 30-170 H LDL CHOL (test code = 52482-0) 144 mg/dL <=160 VLDL (test code = 3829869456) 35 mg/dL 5-60 Lab Interpretation (test cod e = 81012-0) Abnormal [facility] CenterMagnesium2024-02-02 18:45:12* Test Item Value Reference Range Interpretation Comme nts MAGNESIUM (test code = 4954923686) 1.7 mg/dL 1.7-2.4 Lab Interpretation (test cod e = 43321-6) Normal [facility] Center[facility] Metabolic Panel (79499)2023-03-17 18:44:51* Test Item Value Reference Range Interpretation Comme nts NA (test code = 2642679078) 140 mmol/L 135-145 K (test code = 9798307872) 3.6 mmol/L 3.5-5.0 CL (test code = 0743080034) 108 mmol/L 98-108 CO2 TOTAL (test code = 7114535198) 24 mmol/L 23-31 AGAP (test code = 0742728672) 8 2-16 BUN (test code = 1118796154) 11 mg/dL 7-23 GLUCOSE (test code = 4581327052) 156 mg/dL 70-110 H CREATININE (test code = 8502787965) 0.52 mg/dL 0.50-1.04 TOTAL BILI (test code = 7740972362) 0.9 mg/dL 0.1-1.1 CALCIUM (test code = 4994891617) 9.9 mg/dL 8.6-10.6 T PROTEIN (test code = 9546571030) 8.0 g/dL 6.3-8.2 ALBUMIN (test code = 1057344016) 4.5 g/dL 3.5-5.0 ALK PHOS (test code = 7616602981) 74 U/L 34-122 ALTv (test code = 1742-6) 18 U/L 5-35 AST(SGOT) (test code = 1227292018) 19 U/L 13-40 eGFR (test code = 64942-2) 116.9 mL/min/1.73m2 CKD-EPI eGFR (2020). Assuming creatinine has been stable day-to-day for at least three months, the eGFR indicates Category G1 (>= 90 mL/min/1.73 m2) Lab Interpretation (test code = 46754-2) Abnormal [facility] Met[facility] Panel (34595)2023-03-17 18:44:51* Test Item Value Reference Range Interpretation Comme nts NA (test code = 9010108282) 140 mmol/L 135-145 K (test code = 8741338651) 3.6 mmol/L 3.5-5.0 CL (test code = 3741807049) 108 mmol/L 98-108 CO2 TOTAL (test code = 7136734676) 24 mmol/L 23-31 AGAP (test code = 5404527501) 8 2-16 BUN (test code = 0011563338) 11 mg/dL 7-23 GLUCOSE (test code = 3825410663) 156 mg/dL 70-110 H CREATININE (test code = 0967301813) 0.52 mg/dL 0.50-1.04 TOTAL BILI (test code = 1614405147) 0.9 mg/dL 0.1-1.1 CALCIUM (test code = 2699268454) 9.9 mg/dL 8.6-10.6 T PROTEIN (test code = 6343401539) 8.0 g/dL 6.3-8.2 ALBUMIN (test code = 9564121689) 4.5 g/dL 3.5-5.0 ALK PHOS (test code = 7954744376) 74 U/L 34-122 ALTv (test code = 1742-6) 18 U/L 5-35 AST(SGOT) (test code = 0981122243) 19 U/L 13-40 eGFR (test code = 58216-3) 116.9 mL/min/1.73m2 CKD-EPI eGFR (2020). Assuming creatinine has been stable day-to-day for at least three months, the eGFR indicates Category G1 (>= 90 mL/min/1.73 m2) Lab Interpretation (test code = 43739-8) Abnormal [facility] CenterGlycosylated Hemoglobin (A1C)2023-03-17 18:25:17* Test Item Value Reference Range Interpretation Comme nts HGB A1C (test code = 4548-4) 7.0 % 4.0-5.7 H VERONA (test code = VERONA) Reference RangesNormal: <5.7%Prediabetes: 5.7 - 6.4%Diabetes: > 6.5% Lab Interpretation (test code = 24703-8) Abnormal [facility] CenterGlycosylated Hemoglobin (A1C)2023-03-17 18:25:17* Test Item Value Reference Range Interpretation Comme nts HGB A1C (test code = 4548-4) 7.0 % 4.0-5.7 H VERONA (test code = VERONA) Reference RangesNormal: <5.7%Prediabetes: 5.7 - 6.4%Diabetes: > 6.5% Lab Interpretation (test code = 00887-7) Abnormal [facility] CenterCbc with Lanl0591-70-14 17:38:00* Test Item Value Reference Range Interpretation Comme nts WBC (test code = 6690-2) 7.36 4.30-11.10 RBC (test code = 789-8) 4.18 3.93-5.25 HGB (test code = 718-7) 13.5 g/dL 11.6-15.0 HCT (test code = 4544-3) 38.6 % 35.7-45.2 MCV (test code = 787-2) 92.3 fL 80.6-95.5 MCH (test code = 785-6) 32.3 pg 25.9-32.8 MCHC (test code = 786-4) 35.0 g/dL 31.6-35.1 RDW-SD (test code = 94851-2) 40.7 fL 39.0-49.9 RDW-CV (test code = 788-0) 12.1 % 12.0-15.5 PLT (test code = 777-3) 248 166-358 MPV (test code = 51033-4) 10.7 fL 9.5-12.9 NRBC/100 WBC (test code = 1105901899) 0.0 0.0-10.0 NRBC x10^3 (test code = 3369094270) See_Comment [Automated messa ge] The system which generated this result transmitted reference range: 10*3/?L. The reference range was not used to interpret this result as normal/abnormal. GRAN MAT (NEUT) % (test code = 770-8) 69.8 % IMM GRAN % (test code = 2136028296) 0.30 % LYMPH % (test code = 736-9) 24.3 % MONO % (test code = 5905-5) 4.1 % EOS % (test code = 713-8) 1.1 % BASO % (test code = 706-2) 0.4 % GRAN MAT x10^3(ANC) (test code = 7499511620) 5.14 10*3/uL 1.88-7.09 IMM GRAN x10^3 (test code = 8573102842) 0.00-0.06 LYMPH x10^3 (test code = 731-0) 1.79 10*3/uL 1.32-3.29 MONO x10^3 (test code = 742-7) 0.30 10*3/uL 0.33-0.92 L EOS x10^3 (test code = 711-2) 0.08 10*3/uL 0.03-0.39 BASO x10^3 (test code = 704-7) 0.03 10*3/uL 0.01-0.07 Lab Interpretation (test code = 98182-2) Abnormal [facility] with Vafa5253-91-82 17:38:00* Test Item Value Reference Range Interpretation Comme nts WBC (test code = 6690-2) 7.36 4.30-11.10 RBC (test code = 789-8) 4.18 3.93-5.25 HGB (test code = 718-7) 13.5 g/dL 11.6-15.0 HCT (test code = 4544-3) 38.6 % 35.7-45.2 MCV (test code = 787-2) 92.3 fL 80.6-95.5 MCH (test code = 785-6) 32.3 pg 25.9-32.8 MCHC (test code = 786-4) 35.0 g/dL 31.6-35.1 RDW-SD (test code = 11144-3) 40.7 fL 39.0-49.9 RDW-CV (test code = 788-0) 12.1 % 12.0-15.5 PLT (test code = 777-3) 248 166-358 MPV (test code = 07157-8) 10.7 fL 9.5-12.9 NRBC/100 WBC (test code = 6651371975) 0.0 0.0-10.0 NRBC x10^3 (test code = 4588558886) See_Comment [Automated messa ge] The system which generated this result transmitted reference range: 10*3/?L. The reference range was not used to interpret this result as normal/abnormal. GRAN MAT (NEUT) % (test code = 770-8) 69.8 % IMM GRAN % (test code = 2014612941) 0.30 % LYMPH % (test code = 736-9) 24.3 % MONO % (test code = 5905-5) 4.1 % EOS % (test code = 713-8) 1.1 % BASO % (test code = 706-2) 0.4 % GRAN MAT x10^3(ANC) (test code = 3207689205) 5.14 10*3/uL 1.88-7.09 IMM GRAN x10^3 (test code = 8904820481) 0.00-0.06 LYMPH x10^3 (test code = 731-0) 1.79 10*3/uL 1.32-3.29 MONO x10^3 (test code = 742-7) 0.30 10*3/uL 0.33-0.92 L EOS x10^3 (test code = 711-2) 0.08 10*3/uL 0.03-0.39 BASO x10^3 (test code = 704-7) 0.03 10*3/uL 0.01-0.07 Lab Interpretation (test code = 68108-5) Abnormal [facility] MOLECULAR LLCHP0907-07-19 16:31:50* Test Item Value Reference Range Interpretation Comme nts POCT Molecular Strep (test c ode = 70821-4) Negative Negative Lab Interpretation (test cod e = 96916-7) Normal [facility] MOLECULAR [id number] 16:31:50* Test Item Value Reference Range Interpretation Comme nts POCT Molecular Strep (test c ode = 29940-8) Negative Negative Lab Interpretation (test cod e = 06290-4) Normal [facility] Urinalysis W Specific Ctpuuuk3240-68-61 15:55:00* Test Item Value Reference Range Interpretation Comme nts POCT U SP GRAV (test code = 3255) 1.020 mg/dl 1.005-1.025 POCT PH U (test code = 3254) 5 mg/dl 5-8 POCT U LEUK EST (test code = 3263) ++ Negative - Negative POCT U NIT (test code = 3262) Negative Negative - Negati ve POCT U PROT (test code = 3259) +/30 Negative - Negative POCT U GLU (test code = 3256) Negative Negative - Negati ve POCT U KETONE (test code = 3258) Negative Negative - Negative POCT U UROBILI (test code = 3260) 0.2 mg/dl 0.2-1 POCT U BILI (test code = 3261) Negative Negative - Negative POCT U BLD (test code = 3257) Trace Negative - Negati ve POCT U COLOR (test code = 3266) Dark Yellow POCT U APPEAR (test code = 3267) Hazy Lab Interpretation (test cod e = 35463-4) Abnormal [facility] Urinalysis W Specific Arwxvds6560-78-49 15:55:00* Test Item Value Reference Range Interpretation Comme nts POCT U SP GRAV (test code = 3255) 1.020 mg/dl 1.005-1.025 POCT PH U (test code = 3254) 5 mg/dl 5-8 POCT U LEUK EST (test code = 3263) ++ Negative - Negative POCT U NIT (test code = 3262) Negative Negative - Negati ve POCT U PROT (test code = 3259) +/30 Negative - Negative POCT U GLU (test code = 3256) Negative Negative - Negati ve POCT U KETONE (test code = 3258) Negative Negative - Negative POCT U UROBILI (test code = 3260) 0.2 mg/dl 0.2-1 POCT U BILI (test code = 3261) Negative Negative - Negative POCT U BLD (test code = 3257) Trace Negative - Negati ve POCT U COLOR (test code = 3266) Dark Yellow POCT U APPEAR (test code = 3267) Hazy Lab Interpretation (test cod e = 90561-5) Abnormal [facility] W Specific Bwusxzk5271-42-49 15:55:00* Test Item Value Reference Range Interpretation Comme nts POCT U SP GRAV (test code = 3255) 1.020 mg/dl 1.005-1.025 POCT PH U (test code = 3254) 5 mg/dl 5-8 POCT U LEUK EST (test code = 3263) ++ Negative - Negative POCT U NIT (test code = 3262) Negative Negative - Negati ve POCT U PROT (test code = 3259) +/30 Negative - Negative POCT U GLU (test code = 3256) Negative Negative - Negati ve POCT U KETONE (test code = 3258) Negative Negative - Negative POCT U UROBILI (test code = 3260) 0.2 mg/dl 0.2-1 POCT U BILI (test code = 3261) Negative Negative - Negative POCT U BLD (test code = 3257) Trace Negative - Negati ve POCT U COLOR (test code = 3266) Dark Yellow POCT U APPEAR (test code = 3267) Hazy Lab Interpretation (test cod e = 11907-9) Abnormal [facility] CenterRPR Bcjhvvenzuz8427-21-35 16:15:49* Test Item Value Reference Range Interpretation Comme nts RPR Qual (test code = RPR Qual) Non-Reactive Non-Reactive Reactive Control (test code = Reactive Control) Reactive Weak Reactive Control (test code = Weak Reactive Control) Weak Reactive Non-Reactive Control (test c ode = Non-Reactive Control) Non-Reactive Lot # (test code = Lot #) [id number] N Expiration Dt (test code = Expiration Dt) 10.31.20 N Thyroid Stimulating Winjynm7665-74-93 21:53:18* Test Item Value Reference Range Interpretation Comme nts TSH (test code = TSH) 3.260 mIU/mL 0.270-4.200 Lipid Tcgtm9872-10-08 21:49:06* Test Item Value Reference Range Interpretation Comme nts Cholesterol Total (test code = Cholesterol Total) 242 mg/dL 0-200 H RISK OF HEART DISEASEPublished by [place] Heart Association Analyte Optimal Borderline Increased RiskCHOL <200 200-239 >240TRIG <150 150-199 >200HDL Male >60 <40HDL Female >60 <50LDL <100 130-159 >160LDL Near optimal is 100-129 Triglycerides (test code = Triglycerides) 193 mg/dL 9-200 HDL (test code = HDL) 51 mg/dL 50-60 LDL (test code = LDL) 152 mg/dL 0-130 H The equation being used in this calculation is LDL = (Chol - HDL) - (Trig / 5) VLDL (test code = VLDL) 39 mg/dL 5-40 The equation verna ng used in this calculation is VLDL = Trig / 5 Chol/HDL (test code = Chol/HDL) 4.7 ratio 0.0-4.4 H LDL/HDL Ratio (test code = LDL/HDL Ratio) 3 N The equati on being used in this calculation is LDL/HDL Ratio=LDL Calc/HDL Chol HCG Qualitative [id number] 21:36:21* Test Item Value Reference Range Interpretation Comme nts HCG, Serum Qual (test code = HCG, Serum Qual) Negative Lot # (test code = Lot #) [id number] N Expiration Dt (test code = Expiration Dt) 2020-04-12 N Neg Control (test code = Neg Control) Negative Pos Control (test code = Pos Control) Positive Internal QC (test code = Int ernal QC) Acceptable Urine Drug Pmshqs8425-85-48 15:28:09* Test Item Value Reference Range Interpretation Comme nts Amphetamine Screen Ur (test code = Amphetamine Screen Ur) Negative Negative Barbiturate Screen Ur (test code = Barbiturate Screen Ur) Negative Negative Benzodiazepines Ur (test code = Benzodiazepines Ur) Negative Negative Cocaine Screen Ur (test code = Cocaine Screen Ur) Negative Negative U Methadone Scr (test code = U Methadone Scr) Negative Negative Opiate Screen Ur (test code = Opiate Screen Ur) Negative Negative U PCP Scrn (test code = U PCP Scrn) Negative Negative Cannabinoid Screen Ur (test code = Cannabinoid Screen Ur) Negative Negative U TCA (test code = U TCA) Negative Negative The results of a ll drug screen tests are only preliminary. Clinical consideration and professional judgment should be applied to any drug of abuse test result, particularly when preliminary positive results are obtained. Please order a separate confirmatory test if desired. Comprehensive Metabolic Ggduf6061-20-68 14:57:03* Test Item Value Reference Range Interpretation Comme nts Sodium Level (test code = So dium Level) 136.0 mmol/L 135.0-145.0 Potassium Level (test code = Potassium Level) 3.7 mmol/L 3.5-5.1 Chloride Level (test code = Chloride Level) 99 mmol/L 98-105 CO2 (test code = CO2) 23 mmol/L 22-29 Anion Gap (test code = Anion Gap) 14 mmol/L 7-16 BUN (test code = BUN) 7.40 mg/dL 6.00-20.00 Creatinine Level (test code = Creatinine Level) 0.70 mg/dL 0.50-0.90 BUN/Creat Ratio (test code = BUN/Creat Ratio) 11 N Glucose Level (test code = Glucose Level) 159 mg/dL 70-115 H Calcium Level (test code = Calcium Level) 10.0 mg/dL 8.3-10.5 Alk Phos (test code = Alk Phos) 68 U/L 35-104 Bilirubin Total (test code = Bilirubin Total) 0.3 mg/dL 0.1-0.9 Albumin Level (test code = Albumin Level) 4.9 g/dL 3.5-5.2 Protein Total (test code = Protein Total) 7.8 g/dL 6.4-8.3 ALT (test code = ALT) 32 U/L 1-33 AST (test code = AST) 21 U/L 1-32 Globulin (test code = Globulin) 2.9 g/dL 2.9-3.1 A/G Ratio (test code = A/G Ratio) 1.7 ratio N Comprehensive Metabolic [id number] 14:57:03* Test Item Value Reference Range Interpretation Comme nts Sodium Level (test code = Sodium Level) 136.0 mmol/L 135.0-145.0 Potassium Level (test code = Potassium Level) 3.7 mmol/L 3.5-5.1 Chloride Level (test code = Chloride Level) 99 mmol/L 98-105 CO2 (test code = CO2) 23 mmol/L 22-29 Anion Gap (test code = Anion Gap) 14 mmol/L 7-16 BUN (test code = BUN) 7.40 mg/dL 6.00-20.00 Creatinine Level (test code = Creatinine Level) 0.70 mg/dL 0.50-0.90 BUN/Creat Ratio (test code = BUN/Creat Ratio) 11 N Glucose Level (test code = Glucose Level) 159 mg/dL 70-115 H Calcium Level (test code = Calcium Level) 10.0 mg/dL 8.3-10.5 Alk Phos (test code = Alk Phos) 68 U/L 35-104 Bilirubin Total (test code = Bilirubin Total) 0.3 mg/dL 0.1-0.9 Albumin Level (test code = Albumin Level) 4.9 g/dL 3.5-5.2 Protein Total (test code = Protein Total) 7.8 g/dL 6.4-8.3 ALT (test code = ALT) 32 U/L 1-33 AST (test code = AST) 21 U/L 1-32 Globulin (test code = Globulin) 2.9 g/dL 2.9-3.1 A/G Ratio (test code = A/G Ratio) 1.7 ratio N eGFR AA (test code = eGFR AA) >60 mL/min/1.73 m2 N eGFR (estimated Glomerular Filtration Rate) is an estimated value, calculated from the patient's serum creatinine using the MDRD equation. It is NOT the patient's actual GFR. The eGFR provides a more clinically useful measure of kidney disease than serum creatinine alone.This calculation takes sex and race into account, if the information is provided. If the race is not provided, and the patient is -[place], multiply by 1.212. If sex is not provided, and the patient is female, multiply by 0.742. Results for patients <18 years of age have not been validated by the MDRD study and should be interpreted with caution. eGFR Result Interpretation:eGFR > or = 60 is in the Normal RangeeGFR < 60 may mean kidney diseaseeGFR < 15 may mean kidney failure Ranges recommended by the National Kidney Foundation, http://nkdep.nih.gov Alcohol Ffzvn6381-64-15 14:57:03* Test Item Value Reference Range Interpretation Comme nts Ethanol Level (test code = Ethanol Level) <0.00 g/dL 0.00-0.01 Intoxicated 0.08 0 g/dL or more Ethanol Inst (test code = Ethanol Inst) <0 N Comprehensive Metabolic Nlvpp6240-39-16 14:57:03* Test Item Value Reference Range Interpretation Comme nts Sodium Level (test code = Sodium Level) 136.0 mmol/L 135.0-145.0 Potassium Level (test code = Potassium Level) 3.7 mmol/L 3.5-5.1 Chloride Level (test code = Chloride Level) 99 mmol/L 98-105 CO2 (test code = CO2) 23 mmol/L 22-29 Anion Gap (test code = Anion Gap) 14 mmol/L 7-16 BUN (test code = BUN) 7.40 mg/dL 6.00-20.00 Creatinine Level (test code = Creatinine Level) 0.70 mg/dL 0.50-0.90 BUN/Creat Ratio (test code = BUN/Creat Ratio) 11 N Glucose Level (test code = Glucose Level) 159 mg/dL 70-115 H Calcium Level (test code = Calcium Level) 10.0 mg/dL 8.3-10.5 Alk Phos (test code = Alk Phos) 68 U/L 35-104 Bilirubin Total (test code = Bilirubin Total) 0.3 mg/dL 0.1-0.9 Albumin Level (test code = Albumin Level) 4.9 g/dL 3.5-5.2 Protein Total (test code = Protein Total) 7.8 g/dL 6.4-8.3 ALT (test code = ALT) 32 U/L 1-33 AST (test code = AST) 21 U/L 1-32 Globulin (test code = Globulin) 2.9 g/dL 2.9-3.1 A/G Ratio (test code = A/G Ratio) 1.7 ratio N eGFR AA (test code = eGFR AA) >60 mL/min/1.73 m2 N eGFR (estimated Glomerular Filtration Rate) is an estimated value, calculated from the patient's serum creatinine using the MDRD equation. It is NOT the patient's actual GFR. The eGFR provides a more clinically useful measure of kidney disease than serum creatinine alone.This calculation takes sex and race into account, if the information is provided. If the race is not provided, and the patient is -[place], multiply by 1.212. If sex is not provided, and the patient is female, multiply by 0.742. Results for patients <18 years of age have not been validated by the MDRD study and should be interpreted with caution. eGFR Result Interpretation:eGFR > or = 60 is in the Normal RangeeGFR < 60 may mean kidney diseaseeGFR < 15 may mean kidney failure Ranges recommended by the National Kidney Foundation, http://nkdep.nih.gov eGFR Non-AA (test code = eGFR Non-AA) >60.00 mL/min/1.73 m2 N eGFR (estimated Glomerular Filtration Rate) is an estimated value, calculated from the patient's serum creatinine using the MDRD equation. It is NOT the patient's actual GFR. The eGFR provides a more clinically useful measure of kidney disease than serum creatinine alone.This calculation takes sex and race into account, if the information is provided. If the race is not provided, and the patient is -[place], multiply by 1.212. If sex is not provided, and the patient is female, multiply by 0.742. Results for patients <18 years of age have not been validated by the MDRD study and should be interpreted with caution. eGFR Result Interpretation:eGFR > or = 60 is in the Normal RangeeGFR < 60 may mean kidney diseaseeGFR < 15 may mean kidney failure Ranges recommended by the National Kidney Foundation, http://nkdep.nih.gov Urinalysis with Microscopic if hrdszhwft6628-35-40 14:56:39* Test Item Value Reference Range Interpretation Comme nts UA Color (test code = UA Color) STRAW Yellow UA Appear (test code = UA Appear) CLEAR Clear UA pH (test code = UA pH) 5 N UA Spec Grav (test code = UA Spec Grav) 1.003 1.001-1.035 UA Glucose (test code = UA Glucose) NEG Negative UA Ketones (test code = UA Ketones) NEG Negative UA Blood (test code = UA Blood) NEG Negative UA Protein (test code = UA Protein) NEG Negative UA Bili (test code = UA Bili) NEG Negative UA Urobilinogen (test code = UA Urobilinogen) 0.2 mg/dL N UA Nitrite (test code = UA Nitrite) NEG Negative UA Leuk Est (test code = UA Leuk Est) NEG Negative UA Micro Ind? (test code = UA Micro Ind?) Not Indicated Not Indicated Result cre ated by rule GL_SJM_UA_MICRO_IN D Complete Blood Count with Boyskxfhbjzy8179-16-83 14:43:33* Test Item Value Reference Range Interpretation Comme nts WBC (test code = WBC) 5.9 x10 4.4-10.5 RBC (test code = RBC) 4.36 x10 3.75-5.20 Hgb (test code = Hgb) 14.2 g/dL 12.2-14.8 MCV (test code = MCV) 93.60 fL 80.00-100.00 Hct (test code = Hct) 40.8 % 36.5-44.4 MCHC (test code = MCHC) 34.80 g/dL 32.00-37.50 RDW CV (test code = RDW CV) 11.7 % 11.5-14.5 MCH (test code = MCH) 32.6 pg 27.0-32.5 H Platelets (test code = Platelets) 267.0 x10 140.0-440.0 MPV (test code = MPV) 10.3 fL N Slide Review (test code = Slide Review) Auto Auto Result crea gricelda by GL_SJM_SLIDE_REV_AUTO nRBC (test code = nRBC) 0 N NRBC Abs (test code = NRBC Abs) 0.00 x10 N IPF (test code = IPF) 0 % N Automated Pzchurmopvov4922-25-92 14:43:33* Test Item Value Reference Range Interpretation Comme nts Neutro Auto (test code = Brett tro Auto) 55.2 % 36.0-70.0 Lymph Auto (test code = Lymph Auto) 37.0 % 12.0-44.0 [place] Auto (test code = [place] Auto) 5.6 % 0.0-11.0 Eos, Auto (test code = Eos, Auto) 1.7 % 0.0-7.0 Basophil Auto (test code = B asophil Auto) 0.3 % 0.0-2.0 Neutro Absolute (test code = Neutro Absolute) 3.3 x10 1.6-7.4 Lymph Absolute (test code = Lymph Absolute) 2.19 x10 .50-4.60 [place] Absolute (test code = M ena Absolute) .33 x10 .00-1.20 Eos Absolute (test code = Eo s Absolute) 0.10 x10 0.00-0.74 Baso Absolute (test code = B aso Absolute) 0.02 x10 0.00-0.21 IG Zqlnl0212-95-24 14:43:33* Test Item Value Reference Range Interpretation Comme nts IG (test code = IG) 0.2 % 0.0-5.0 IG Abs (test code = IG Abs) 0 x10 N Notes Date/Time Note Provider Source 2023-04-18 15:06:33 Xr/dJTdSvHGIX1ALdXUQ+wIGwK7vQz1l1a TsarEE4cvPOyk3GoVXnt+LbNlczqLW9562 -03-05T15:06:33 3rd attempt to call patient, no answer, letter has been sent out to patient to give us a call back to discuss mammogram results. Will close encounter. 54413-4Caeawlwgt encounter ElqhKN9388-62-14K99:09:31Telephone encounter NoteTXT1.2.840.264970.1.13.104.2.7 .2.852339|[id number] for patient frmr73545-7WjasOEZTSMWAKRZWdujtkbw d C-CDA narrative [id number] M Serrano MA[address] YzabAtidsmbzoZuqjirjwoQRVE87331775 69KNYYCCUONWNYWMPZMHEMZP4817-78-27 T15:09:311.2.840.867401.1.72.3.15| 1.2.840.023445.1.13.104.2.7.2.7278 79_[id number] Dasha Durham MA [facility] 2023-04-18 11:13:25 tDKloYT82bgYhxg0twde5Oppsg8RwSSN2C W5Jy+12QEnmxMqakv3CYi0Ad6JKxqK0604 -03-05T11:13:25 2ns attempt to contact patient, no answer, call will not go through. Unable to LVM. 09228-7Gkyoexxrb encounter HtxpYI4933-32-29Z57:14:14Telephone encounter NoteTXT1.2.840.827384.1.13.104.2.7 .2.306712|[id number] for patient ipfj12626-1ArfvZFBCCGFMCRFMgxgtqvm d C-CDA narrative text[id number] 08GGRMZYLDXUNQRTQPBGQDML1155-19-98 T11:14:141.2.840.217634.1.72.3.15| 1.2.840.895864.1.13.104.2.7.2.7278 79_[id number] [facility] 2023-04-17 14:04:58 nb+V+ngqeDa0zTpfDCTBx6ra6RqbjM0Pa/ 80fXUUiquAgR0kPRxC8nfCveB5mmkR3071 -03-04T14:04:58 Images from the original note were not included.Medical record consent received from [facility] faxed to [facility]. 89863-5Totzanfhs encounter YpyyOZ6607-47-48J10:06:15Telephone encounter NoteTXT1.2.840.731186.1.13.104.2.7 .2.046535|[id number] for patient lzkn70514-2CeodRIHYFAHTBXKAusjpdft d C-CDA narrative [id number] D [address]enUT[id number] 59KSDHIZVVSQTQYNBDXXKPGC8780-70-43 T14:06:151.2.840.177622.1.72.3.15| 1.2.840.979268.1.13.104.2.7.2.7278 79_[id number] Princess Wolf [facility] 2023-04-14 16:48:38 MrlSBVpRLa06QREIfp7vjhAJuiIWrozNHe 1Jf4s5fbPAL2Nt9PjG/TAjX7WH4UCX2444 -03-01T16:48:38 Attempted to call patient @ [phone] call will not go through. Called [phone] phone kept ringing, not able to reach patient. Isabel Moya MA 04/14/2023 4:51 PM 19942-2Xdaprbmei encounter JehpOP9334-79-85L64:51:28Telephone encounter NoteTXT1.2.840.370316.1.13.104.2.7 .2.381375|8613783353CNYintozhvp for patient urdc18038-5WwyqXHXLANYJAYRFscvztqb d C-CDA narrative trry054516293Kqtejhg Davila MA[address] OdyxPpopqkdvkPmbzaympwIGMZ26750429 30CKBYDNOOQOXHZBAWBYHDHL1262-66-19 T16:51:281.2.840.463233.1.72.3.15| 1.2.840.080648.1.13.104.2.7.2.7278 79_[id number] Isabel Moya MA [facility] 2023-04-14 16:27:07 9kNZqr71436FcbptGMY7aUAOY4H9w/fn9f 19vFWFcVlB6NeAMWxOqrnqWrrUA+pp60562023T16:27:07 Impression:Small mass in the upper outer left breast is most likely an intramammary lymph node. Further evaluation is recommended for confirmationRecommendation:Spot compression with possible ultrasound - LeftAnnual mammographic follow-up - RightBI-RADS Category:Left: 0 - Incomplete: Needs Additional Imaging EvaluationRight: 1 - NegativeOverall: 0 - Incomplete: Needs Additional Imaging EvaluationI have placed ordersThe number for scheduling of imaging through [facility] is [phone]. 82159-1Eknzwuzco encounter YfuiYH0156-86-23I85:28:03Telephone encounter NoteTXT1.2.840.385534.1.13.104.2.7 .2.970628|[id number] for patient bqpg85035-5FzdrSIFNODWHTPVCjrputml d C-CDA narrative text[address] ZdmdI[id number] 38AVQQLCMXCYMCNKXLOCSXMZ1731-43-15 T16:28:031.2.840.426000.1.72.3.15| 1.2.840.034381.1.13.104.2.7.2.7278 79_[id number] [facility] 2023-04-14 11:15:00 YD/0CPnd+oa8bD46M2luERmMAdNQyrnmPS qudF50HaeGrfDNato0CxPVEXqN0cLS9133 -03-01T11:15:00 Images from the original note were not included.Venipuncture collection performed by clean technique on the left anticubitus. Total of 1 attempts were made. Slight pressure and a bandage/dressing were applied to the site(s). The patient experienced no complications. The following specimens were processed according to instructions and sent to [facility] laboratories per lab order on 04/14/2023:LT BLUESST 1REDLAV 1PPTDK GREEN (LiHep)DK GREEN (SodH)GRAYDK BLUE (K2)DK BLUE (S)ACDBlood CultureNIPT/NTDPatient has been identified by and name and was provided with cup, antiseptic towelette, and clean catch instructions. 1 urine specimen(s) sent.Unpreserved 1Urine CultureAptima tubeOther urine 19563-8Axuxe LrdtUY8637-27-10V79:33:56Nurse NoteTXT1.2.840.384710.1.13.104.2.7 .2.281534|[id number] for patient qvkz38981-8Hjwop NoteLNNARRATIVEFormatted C-CDA narrative text[id number] 10QDNVSFWYETPROJRQCPIFAM4095-72-48 T10:33:561.2.840.977432.1.72.3.15| 1.2.840.464200.1.13.104.2.7.2.7278 79_[id number] [facility] 2023-04-06 12:06:09 lVqorOKAh04gaVA01jQkuO4Mv0jzsqqFz2 +Au/uDPQuF+0940ALq9tOyGyG5FcEL5562 -02-22T12:06:09 Dr. Puga:Order TSH with Free T4, FSH, Estrogen, Progesterone levels.Orders placed through [employer].Patient notified.Kwaku Becerra RN 04/06/2023 12:19 PM 70641-9Wqxwlwnrw encounter AvaeZP4129-20-83A86:19:54Telephone encounter NoteTXT1.2.840.720852.1.13.104.2.7 .2.446484|[id number] for patient jrpp69146-4GkqnZPCSRNZZBLAGsrmsgrj d C-CDA narrative hwya461315465Lxvbgsn Becerra [id number] 11XRUDXTCCYJHJJMPKBFDDHP6846-50-15 T12:19:541.2.840.013977.1.72.3.15| 1.2.840.118579.1.13.104.2.7.2.7278 79_[id number] Kwaku Becerra [facility] 2023-04-06 11:04:57 2Qx81NIWn7z/HNqml1dyEYAoKy9IfbZlE7 y+e01ZKhf5y5d/NwAjIELPOZ8NC6wu5997 -02-22T11:04:[address] orders since pelvic US and labs done outside system. 29188-2Prbbbcyju encounter FszzIK0371-44-42M34:05:13Telephone encounter NoteTXT1.2.840.520386.1.13.104.2.7 .2.415340|9014850371ZVBrovhtebk for patient nhgh73872-9PtvyPHUPGWKCBWDSlegdywp d C-CDA narrative textOG-OBSTETRICS & GYNECOLOGY STAFFOG-OB[facility]RICS [facility] GYNECOLOGY [id number] 12JQRHUSUHARYVNQDOUPBDJI0636-89-50 T11:05:131.2.840.031982.1.72.3.15| 1.2.840.724191.1.13.104.2.7.2.7278 79_[id number] OG-OBSTETRICS [facility] GYNECOLOGY [facility] 2023-04-06 10:26:13 VjaHMZYXcR7Ukv/4DXXgnYph6of7Jr4d6Y 2DrFd00s5SeFl2e1Z06MTDeca55/JX7002T10:26:13 Last OV note does not have written orders.Will route to provider for order clarification.Kwaku Becerra RN 04/06/2023 10:26 AM 90838-7Aipuufjxj encounter HtrjQZ8401-26-12S77:27:30Telephone encounter NoteTXT1.2.840.466982.1.13.104.2.7 .2.608514|4394971602FHTurzensdn for patient eheh80844-0AbkqYOZIXPZQXDABjqabmng d C-CDA narrative [id number] 08QVEMWIYDVUQYVUESFBYMVF5205-57-36 T10:27:301.2.840.372388.1.72.3.15| 1.2.840.471625.1.13.104.2.7.2.7278 79_[id number] [facility] 2023-04-06 09:47:51 VUkPxA++zMtFRmhRNiKzGQ80u1kzn/16ar waND0mThdc5ui8Q3EQSYvOiajQUSVQ4643 -02-22T09:47:51 Patient need lab orders faxed to [facility] she misplaced orders that were given to her, she has a temporary phone at the moment so call [phone]. 28239-0Xkylneqmb encounter KqzeZW2736-80-76M94:49:26Telephone encounter NoteTXT1.2.840.619063.1.13.104.2.7 .2.226961|0851455328KVFnzochntf for patient wjxb32010-7DyoeNOMGMHGUWPNSheyrtlk d C-CDA narrative ltyl851375847Qprfo Armand[address]vdGal[address]onGalvestonTXTX[address] 29LTOQMHMIUYYCKRLXVAPZSM8402-18-36 T09:49:261.2.840.663902.1.72.3.15| 1.2.840.928241.1.13.104.2.7.2.7278 79_[id number] Claudette Acuna [facility] 2023-03-17 10:45:00 gZuX5JutcU78Ry/vwwmorjQ1ZtnAcBiuRZ 2SP18dp4lTjPFjNfQdM5aE3pum4Ex31716 -02-02T10:45:00 Images from the original note were not included.Venipuncture collection performed by clean technique on the left anticubitus. Total of 1 attempts were made. Slight pressure and a bandage/dressing were applied to the site(s). The patient experienced no complications. The following specimens were processed according to instructions and sent to [facility] laboratories per lab order on 03/17/2023:LT BLUESST 2REDLAV 2PPTDK GREEN (LiHep)DK GREEN (SodH)GRAYDK BLUE (K2)DK BLUE (S)ACDBlood CultureNIPT/NTDPatient has been identified by and name and was provided with cup, antiseptic towelette, and clean catch instructions. 2 urine specimen(s) sent.Unpreserved 1Urine CultureAptima tube 1Other urine 55945-0Logal RewwYD0351-01-15H27:01:46Nurse NoteTXT1.2.840.819392.1.13.104.2.7 .2.900093|[id number] for patient whaq09366-2Gepte NoteLNNARRATIVEFormatted C-CDA narrative text[address] NyxzI[id number] 27XVGGNMCBCJZOECPZMVUVZB2102-96-70 T11:01:461.2.840.171523.1.72.3.15| 1.2.840.082391.1.13.104.2.7.2.7278 79_[id number] [facility] 2023-03-13 13:49:42 JQgy5ZVcAhsmS04hBxwmVRa+UTBDr3PryE 0/aRcOWggp9LtSp0mspqjP6CP7C2sF7540 -01-29T13:49:42 Patient will wait til she gets seen by GARETT Mendez. 86922-0Msrbivjyf encounter GtciAF9955-08-96S31:50:36Telephone encounter NoteTXT1.2.840.739945.1.13.104.2.7 .2.606848|5560400672YXWjxcmxutg for patient qqop98575-8BgldSOUAMSCKLYQVnqbvgst d C-CDA narrative xjxu768138375Bsqmiv M Serrano MA[address]onTXTX[address] 34ZCGOTQYQJFHQIMOCJCGHPE1114-87-87 T13:50:361.2.840.630484.1.72.3.15| 1.2.840.564769.1.13.104.2.7.2.7278 79_[id number] Dasha Durham MA [facility] 2023-03-13 12:08:49 LgZlfL31h+dG0zVPddshCkyvvd8SCoFZKy tSuZZHkz2AiRe3iz15U3/Fu6fmQiG98471 -01-29T12:08:49 Clayton Almaguer is a 47 year old female that states she received a letter from the clinic. The pt's spouse lost the letter so the pt had been calling. The pt stated that because she already scheduled for 03/17/23, she will wait until then to speak with Ms. Dallas. 38102-7Ogbbfudhx encounter DdovLC8383-85-82M73:10:52Telephone encounter NoteTXT1.2.840.823681.1.13.104.2.7 .2.882937|1803753241XFLeojxqkhk for patient uoiy43439-9VsnxCSRDBQNWOSOQbsblmgv d C-CDA narrative glhw120367039Ucva [address] 30TEOPGHQFWZNMVRSAMOLEXS2767-59-91 T12:10:521.2.840.317941.1.72.3.15| 1.2.840.513915.1.13.104.2.7.2.7278 79[facility][id number] [facility] 16:15:26 rYbS/XG4C5Mb4hsXF2xdx6lMM4mUb3NE34 ko332KJqoG7o4S6o3V7x2Tp74w8PJk6370 -01-05T16:15:26 Attempted to reach , daughter answered phone left message. 73743-2Gimtmihbj encounter NqowRV6383-33-56Y95:15:54Telephone encounter NoteTXT1.2.840.662134.1.13.104.2.7 .2.516758|0036842753AOGicgywjxj for patient zkrx93888-1DwvvWUFARKNZFZGHmidcvvq d C-CDA narrative wano232173650Qgvi N Rodriguez[address]TXTX[address] 28BIBNWKUUBMBUVZMUDDXYJC8947-41-56 T16:15:541.2.840.246734.1.72.3.15| 1.2.840.163857.1.13.104.2.7.2.7278 79_[id number] Sami Acuna [facility] 2023-02-17 15:30:37 /Jakob/uUHewtpkYAIBLRvamieHHQMIM N3Yra+3C6TjtDH3slI77/ZvTSzzg5C5707 -01-05T15:30:37 Can you let patient know to stop by our lab for urine testing for STD. Best to come first thing in the AM with first void. The lab did not have enough urine for all testing, was only able to obtain culture. Still needs testing for STD 64382-3Klgugdvpi encounter YlvsYP8171-13-46I80:31:46Telephone encounter NoteTXT1.2.840.520398.1.13.104.2.7 .2.697855|9261989932KCUsncegbpk for patient owsa56771-8KmvwMQPBEUHAOTCVydyyekf d C-CDA narrative text[address] UeimUuevvbifqDenuokgwnQRGO06861579 07NNMDHVNLMHJLNESQHIWYFM7163-14-94 T15:31:461.2.840.443682.1.72.3.15| 1.2.840.372678.1.13.104.2.7.2.7278 79_[id number] [facility] 2023-02-17 09:30:00 nAOd+D0ZY7ce7Q6i4joKd+iPMVje8wUlQG rNJzcw6HRhCH0o5pZwGRMzDp+iSWAP2893202309:30:00 The urine Culture has come back positive for UTIIt is sensitive to the antibiotics you are taking, please continue medications 56693-1Eosnhraz xgfyFH9361-31-06B53:01:44Progress noteTXT1.2.840.898121.1.13.104.2.7 .2.664458|[id number] for patient hhre27470-2FlxsHYKAQYARGLXUvfmgnwv d C-CDA narrative text[address] QkcaRlhwxboftJrhtkxvtfDPDE83182643 13IANXWDBFVFMAAQSAZINBAZ3147-90-71 T14:01:441.2.840.159320.1.72.3.15| 1.2.840.189420.1.13.104.2.7.2.7278 79_[id number] [facility]"
[2023-04-21] MEDS ORDERED: LIDOCAINE 1% 20 ML MDV ONE (00:17)
[2023-04-21] MEDS ORDERED: TDAP (DIPHTH,PERTUSS(ACELL),TET VAC) 0.5 ML VIAL IMVAC ONE (01:08)
[2023-04-21] MEDS ORDERED: HYDROCODONE/APAP 10/325 TAB ONE (01:08)
[2023-04-21] MEDS ORDERED: IBUPROFEN 400 MG TAB ONE (01:08)
--- NOTE | 2023-04-21 03:11 | ER ---
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 Care prior to arrival: None. Mechanism of Injury: Fall standing. 23:52 Acuity: CLOVIS 3 km8 23:52 Method Of Arrival: Ambulatory km8 23:57 Coronavirus screen: Client denies travel out of the [place] in the last 14 days. Ebola km8 Screen: No symptoms or risks identified at this time. Initial Sepsis Screen: Does the patient meet any 2 criteria? No. Patient's initial sepsis screen is negative. Does the patient have a suspected source of infection? No. Patient's initial sepsis screen is negative. Risk Assessment: Do you want to hurt yourself or someone else? Patient reports no desire to harm self or others. Onset of symptoms was April 20, 2023 at 23:20. Triage Assessment: 23:58 General: Appears in no apparent distress. comfortable, Behavior is calm, cooperative, km8 appropriate for age. Pain: Complains of pain in anterior aspect of left shoulder and back of head and right elbow Pain currently is 9 out of 10 on a pain scale. EENT: No signs and/or symptoms were reported regarding the EENT system. Neuro: Level of Consciousness is awake, alert, obeys commands, Oriented to person, place, time, situation, Appropriate for age. Cardiovascular: Denies chest pain, shortness of breath. Respiratory: Airway is patent Respiratory effort is even, unlabored, Respiratory pattern is regular, symmetrical. GI: No signs and/or symptoms were reported involving the gastrointestinal system. : No signs and/or symptoms were reported regarding the genitourinary system. Derm: Skin is intact, is healthy with good turgor, Skin is dry, Skin is pink, warm \T\ dry. normal, Skin temperature is warm Wound noted scalp Wound is laceration. Musculoskeletal: Range of motion: intact in all extremities, Reports pain in anterior aspect of left shoulder and back of head and right elbow. 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 - Social history:: Smoking status: Patient reports the use of cigarette tobacco products, smokes one-half pack cigarettes per day, Patient/guardian denies using alcohol, street drugs. - Family history:: not pertinent. Screenin:52 Abuse screen: Denies threats or abuse. Denies injuries from another. Tuberculosis km8 screening: No symptoms or risk factors identified. 04/20 01:14 [facility] ED Fall Risk Assessment (Adult) History of falling in the last 3 months, jj7 including since admission Yes- single mechanical fall (1 pt) Confusion or Disorientation No (0 pts) Intoxicated or Sedated No (0 pts) Impaired Gait No (0 pts) Mobility Assist Device Used No (0 pt) Altered Elimination No (0 pt) Score/Fall Risk Level 0 - 2 = Low Risk Oriented to surroundings, Maintained a safe environment, Educated pt \T\ family on fall prevention, incl call for assistance when getting out of bed. Nutritional screening: No deficits noted. Primary Survey: 04/19 23:52 NO uncontrolled hemorrhage observed. A: The client is awake and alert. The airway is km8 patent. Breathing/Chest: Spontaneous respiratory effort, equal unlabored respirations, breath sounds clear bilaterally, regular pattern, symmetrical chest rise and fall. Circulation: No external hemorrhage present. Regular and strong central pulse, skin warm/dry/normal color. Disability Pupils are equal, round, reactive to light and accommodation. Assessment: 23:52 General: Appears in no apparent distress. comfortable, Behavior is calm, cooperative, km8 appropriate for age. Pain: Complains of pain in right elbow, anterior aspect of left shoulder and back of head Pain currently is 9 out of 10 on a pain scale. Neuro: Level of Consciousness is awake, alert, obeys commands, Oriented to person, place, time, situation. Neuro: Denies blurred vision dizziness. EENT: No signs and/or symptoms were reported regarding the EENT system. Cardiovascular: Denies chest pain, shortness of breath, Patient's skin is warm and dry. Respiratory: Airway is patent Respiratory effort is even, unlabored, Respiratory pattern is regular, symmetrical. GI: No signs and/or symptoms were reported involving the gastrointestinal system. Patient currently denies nausea. : No signs and/or symptoms were reported regarding the genitourinary system. Derm: Skin is intact, is healthy with good turgor, Skin is dry, Skin is pink, warm \T\ dry. normal, Skin temperature is warm. Musculoskeletal: Range of motion: intact in all extremities, Reports pain in right elbow, anterior aspect of left shoulder and back of head. 04/20 01:16 Reassessment: Patient and/or family updated on plan of care and expected duration. Pain tm6 level reassessed. Patient is alert, oriented x 3, equal unlabored respirations, skin warm/dry/pink. 02:49 Reassessment: Patient and/or family updated on plan of care and expected duration. Pain tm6 level reassessed. Patient is alert, oriented x 3, equal unlabored respirations, skin warm/dry/pink. 03:39 Reassessment: Patient and/or family updated on plan of care and expected duration. Pain tm6 level reassessed. Patient is alert, oriented x 3, equal unlabored respirations, skin warm/dry/pink. Vital Signs: 04/19 23:57 BP 133 / 94; Pulse 97; Resp 16; Temp 97.6(TE); Pulse Ox 100% on R/A; Weight 78.02 kg km8 (R); Height 4 ft. 10 in. (R); Pain 9/10; 08 01:15 BP 108 / 76; Pulse 91; Pulse Ox 99% on R/A; Pain 0/10; tm6 02:48 BP 112 / 69; Pulse 78; Pulse Ox 100% on R/A; Pain 0/10; tm6 03:38 BP 95 / 71; Pulse 73; Resp 17; Temp 96.9(TE); Pulse Ox 100% on R/A; Pain 0/10; tm6 04/19 23:57 Body Mass Index 35.95 (78.02 kg, 147.32 cm) [facility] 04/19 23:57 Pain Scale: Adult 8 04/20 01:15 Pain Scale: Adult tm6 02:48 Pain Scale: Adult tm6 03:38 Pain Scale: Adult tm6 [place] Coma Score: 04/19 23:52 Eye Response: spontaneous(4). Motor Response: obeys commands(6). Verbal Response: km8 oriented(5). Total: 15. 04/20 02:59 Eye Response: spontaneous(4). Motor Response: obeys commands(6). Verbal Response: sp4 oriented(5). Total: 15. 02:59 Eye Response: spontaneous(4). Motor Response: obeys commands(6). Verbal Response: sp4 oriented(5). Total: 15. ED Course: 04/19 23:40 Patient arrived in ED. kj1 23:51 Donald Mendenhall MD is Attending Physician. sp4 23:52 Patient maintains SpO2 saturation greater than 95% on room air. km8 23:54 Triage completed. km8 23:58 Arm band placed on right wrist. 8 04/20 00:00 Client placed on continuous cardiac and pulse oximetry monitoring. NIBP monitoring jj7 applied. 00:14 Warm blanket given. jj7 00:25 Juarez Suarez, RN is Primary Nurse. jj7 00:25 Assist provider with laceration repair on back of head using sutures. Set up tray. jj7 Performed by Donald Mendenhall MD Patient tolerated well. 01:07 Elbow Right 3 View XRAY In Process Unspecified. EDMS 01:14 Patient has correct armband on for positive identification. Placed in gown. Bed in low jj7 position. Call light in reach. Side rails up X2. Adult w/ patient. 01:35 CT Head C Spine In Process Unspecified. EDMS 03:39 Patient did not have IV access during this emergency room visit. tm6 03:39 Provided Education on: follow up with PCP to remove sutures in 2 weeks. Also ask PCP tm6 for sleep study for possible sleep apnea.. Administered Medications: 00:25 Drug: Lidocaine Infiltration (1 %) 20 ml 5 ml Infiltration once; to bedside {Note: jj7 ADMIN BY DR DONALD.} Volume: 5 ml; Route: Infiltration; 01:13 Drug: Hernandez PO 10 mg-325 mg 1 tabs PO once Route: PO; j 01:13 Drug: Ibuprofen PO 800 mg PO once Route: PO; j 01:13 Drug: Boostrix Tdap IM 0.5 ml IM once; as a single dose Route: IM; Site: right deltoid; j 01:14 CANCELLED (Duplicate Order): tetanus-diphtheria toxoidadult 0.5 ml IM once; Provide jj7 Vaccine Information Statement (VIS). Medication: 01:14 Vaccine Information Statement (VIS) provided today. Questions and/or concerns jj7 addressed. VIS edition date: September 18, 2020. Outcome: 03:11 Discharge ordered by . sp4 03:39 Discharged to home via wheelchair, with family, tm6 03:39 Condition: stable 03:39 Discharge instructions given to patient, family, Instructed on discharge instructions, follow up and referral plans. medication usage, Demonstrated understanding of instructions, follow-up care, medications, Prescriptions given X 1, 03:40 Patient left the ED. tm6 Signatures: Dispatcher [employer] EDMS Allyson Sheffield kj1 Juarez Suarez RN RN jj7 Donald Mendenhall MD MD sp4 Kaur Ibrahim RN RN km8 Archana Akins RN RN tm6
--- NOTE | 2023-04-21 03:11 | EDPHYS ---
Physician Documentation [facility] Name: Claribel Teague Age: 47 yrs Sex: Female : 1975 Arrival Date: 04/20/2023 Time: 23:36 Bed 4 Private MD: ED Physician Donald Mendenhall HPI: 04/19 23:51 This 47 yrs old Female presents to ER via Unassigned with complaints of Head sp4 Injury Without LOC-Adult. 04/20 02:59 47-year-old female presents with acute fall and head injury also a right elbow injury sp4 at home. Patient states she slipped on the floor and fell backwards causing scalp injury and laceration and also right elbow contusion. Patient has a blood to posterior hair and scalp in Triage. . 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 - Social history:: Smoking status: Patient reports the use of cigarette tobacco products, smokes one-half pack cigarettes per day, Patient/guardian denies using alcohol, street drugs. - Family history:: not pertinent. ROS: 04/20 02:59 Constitutional: Negative for fever, chills, and weight loss, positive head injury sp4 positive for right elbow injury , positive scalp laceration All other systems are negative, Exam: 02:59 Constitutional: This is a well developed, well nourished patient who is awake, alert, sp4 and in no acute distress. Head/Face: Normocephalic, posterior scalp laceration measuring approximately 2 cm, no active bleeding Eyes: Pupils equal round and reactive to light, extra-ocular motions intact. Lids and lashes normal. Conjunctiva and sclera are not injected. Cornea within normal limits. Periorbital areas with no swelling, redness, or edema. ENT: Nares patent. No nasal discharge, no septal abnormalities noted. Tympanic membranes are normal and external auditory canals are clear. Oropharynx with no redness, swelling, or masses, exudates, or evidence of obstruction, uvula midline. Mucous membranes moist. Neck: Trachea midline, no thyromegaly or masses palpated, and no cervical lymphadenopathy. Supple, full range of motion without nuchal rigidity, or vertebral point tenderness. Chest/axilla: Normal chest wall appearance and motion. Nontender with no deformity. No lesions are appreciated. Cardiovascular: Regular rate and rhythm with a normal S1 and S2. No gallops, murmurs, or rubs. Normal PMI, no JVD. No pulse deficits. Respiratory: Lungs have equal breath sounds bilaterally, clear to auscultation and percussion. No rales, rhonchi or wheezes noted. No increased work of breathing, no retractions or nasal flaring. Abdomen/GI: Soft, with normal bowel sounds. No distension or tympany. No guarding or rebound. No evidence of tenderness throughout. Back: No spinal tenderness. No costovertebral tenderness. Skin: Warm, dry with normal turgor. Normal color with no rashes, no lesions, and no evidence of cellulitis. MS/ Extremity: Pulses equal, no cyanosis. Neurovascular intact. Full, normal range of motion. Positive right elbow tenderness without deformity Neuro: Awake and alert, GCS 15, oriented to person, place, time, and situation. Cranial nerves II-XII grossly intact. Motor strength 5/5 in all extremities. Sensory grossly intact. Psych: Awake, alert, with orientation to person, place and time. Behavior, mood, and affect are within normal limits Vital Signs: 04/19 23:57 BP 133 / 94; Pulse 97; Resp 16; Temp 97.6(TE); Pulse Ox 100% on R/A; Weight 78.02 kg km8 (R); Height 4 ft. 10 in. (R); Pain 9/10; 08 01:15 BP 108 / 76; Pulse 91; Pulse Ox 99% on R/A; Pain 0/10; tm6 02:48 BP 112 / 69; Pulse 78; Pulse Ox 100% on R/A; Pain 0/10; tm6 03:38 BP 95 / 71; Pulse 73; Resp 17; Temp 96.9(TE); Pulse Ox 100% on R/A; Pain 0/10; tm6 04/19 23:57 Body Mass Index 35.95 (78.02 kg, 147.32 cm) [facility] 04/19 23:57 Pain Scale: Adult 8 04/20 01:15 Pain Scale: Adult tm6 02:48 Pain Scale: Adult tm6 03:38 Pain Scale: Adult tm6 [place] Coma Score: 04/19 23:52 Eye Response: spontaneous(4). Motor Response: obeys commands(6). Verbal Response: km8 oriented(5). Total: 15. 04/20 02:59 Eye Response: spontaneous(4). Motor Response: obeys commands(6). Verbal Response: sp4 oriented(5). Total: 15. 02:59 Eye Response: spontaneous(4). Motor Response: obeys commands(6). Verbal Response: sp4 oriented(5). Total: 15. Laceration: 02:59 Wound Repair of 2cm ( 0.8in ) subcutaneous laceration to posterior scalp . Linear sp4 shaped.. Moderate contamination.. Distal neuro/vascular/tendon intact. Anesthesia: Wound infiltrated with 10 mls of 1% lidocaine. Wound prep: Moderate cleansing by me, Copious irrigation. Skin closed with 3 3-0 Silk using interrupted sutures and sterile technique. Dressed with left to air . Patient tolerated well. MDM: 00:05 Patient medically screened. sp4 02:57 ED course: PROCEDURE: CT Head and Cervical Spine Without Intravenous Contrast CLINICAL sp4 INDICATION: The patient is 47 years old and is Female; head injury TECHNIQUE: Axial computed tomography images of the head/brain and cervical spine without intravenous contrast. Sagittal and coronal reformatted images were created and reviewed. This CT exam was performed using one or more of the following dose reduction techniques: automated exposure control, adjustment of the mA and/or kV according to patient size, and/or use of iterative reconstruction technique. DLP: 1102 mGy*cm COMPARISON: None. FINDINGS: BRAIN: Unremarkable. No hemorrhage. No significant white matter disease. No edema. VENTRICLES: Unremarkable. No ventriculomegaly. SKULL: No acute fracture. SINUSES: Unremarkable as visualized. No acute sinusitis. MASTOID AIR CELLS: Unremarkable as visualized. No mastoid effusion. VERTEBRAE: Reversal of the cervical lordosis. Normal alignment. No acute fracture. DISCS/SPINAL CANAL/NEURAL FORAMINA: No acute findings. No spinal canal stenosis. SOFT TISSUES: Parietal scalp midline swelling. LUNG APICES: Visualized lung zones are clear. IMPRESSION: 1. Parietal scalp midline swelling. 2. Reversal of the cervical lordosis. Findings may be positional or due to muscle spasm. 3. No acute intracranial abnormality. 4. No acute cervical spine fracture or subluxation. . ED course: EXAM: Elbow Right 3 View XR Right Elbow 3 Views HISTORY: pain COMPARISON: None. TECHNIQUE: Right Elbow 3 Views FINDINGS: Suboptimal lateral view patient positioning. No fracture or dislocation. No significant sclerotic/lytic bone lesion. Joint spaces unremarkable. Soft tissues unremarkable. IMPRESSION: Unremarkable Right Elbow Radiographs. . 02:59 Differential diagnosis: Contusion of Hematoma on Laceration of Intracranial bleed- sp4 Concussion cerebral contusion. Data reviewed: vital signs, nurses notes, radiologic studies, CT scan, plain films. Consideration of Admission/Observation Escalation of care including admission/observation considered. ED course: Patient advised to perform daily wound care. Right elbow x-ray is negative, there is negative CT head and C-spine .. 04/20 00:35 Order name: CT Head C Spine sp4 04/20 00:35 Order name: Elbow Right 3 View XRAY sp4 04/20 00:05 Order name: Dressing - Wound; Complete Time: 01:54 sp4 04/20 00:05 Order name: Gloves, Sterile; Complete Time: 00:19 sp4 04/20 00:05 Order name: Setup Suture Tray; Complete Time: 00:19 sp4 Administered Medications: 00:25 Drug: Lidocaine Infiltration (1 %) 20 ml 5 ml Infiltration once; to bedside {Note: jj7 ADMIN BY DR HENRY.} Volume: 5 ml; Route: Infiltration; 01:13 Drug: [place] PO 10 mg-325 mg 1 tabs PO once Route: PO; jj7 01:13 Drug: Ibuprofen PO 800 mg PO once Route: PO; jj7 01:13 Drug: Boostrix Tdap IM 0.5 ml IM once; as a single dose Route: IM; Site: right deltoid; jj7 01:14 CANCELLED (Duplicate Order): tetanus-diphtheria toxoidadult 0.5 ml IM once; Provide jj7 Vaccine Information Statement (VIS). Disposition Summary: 04/21/23 03:11 Discharge Ordered Notes: Location: Home sp4 Problem: new sp4 Symptoms: have improved sp4 Condition: Stable sp4 Diagnosis - Laceration without foreign body of scalp sp4 - Fall at home, posterior scalp laceration, right elbow contusion, closed head injury sp4 Followup: sp4 - With: Private Physician - When: 10 - 14 days - Reason: Recheck today's complaints Discharge Instructions: - Discharge Summary Sheet sp4 - Laceration Care, Adult, [id number] sp4 Forms: - Patient Portal Instructions sp4 Prescriptions: - Ibuprofen 800 mg Oral Tablet - take 1 tablet ORAL route every 8 hours As needed take with food; 30 tablet; sp4 Refills: 0, Product Selection Permitted Signatures: Dispatcher [employer] Juarez Combs RN RN jj7 Donald Mendenhall MD MD sp4 Kaur Ibrahim RN RN km8 Corrections: (The following items were deleted from the chart) 01:14 00:35 Tetanus-Diphtheria Toxoid IM Adult 0.5 ml IM once; Provide Vaccine Information jj7 Statement (VIS). ordered. sp4
[2023-04-21 04:08] VITALS: BP 95/71; TEMP 96.9; O2SAT 100
--- NOTE | 2023-04-21 16:35 | RAD REPORT ---
EXAM DESCRIPTION: CT Head and Cervical Spine Without Intravenous Contrast CLINICAL HISTORY: The patient is 47 years old and is Female; head injury TECHNIQUE: Axial computed tomography images of the head/brain and cervical spine without intravenous contrast. Sagittal and coronal reformatted images were created and reviewed. This CT exam was pe rformed using one or more of the following dose reduction techniques: automated exposure control, a djustment of the mA and/or kV according to patient size, and/or use of iterative reconstruction techn ique. DLP: 1102 mGy*cm COMPARISON: None. FINDINGS: BRAIN: Unremarkable. No hemorrhage. No significant white matter disease. No edema. VENTRICLES: Unremarkable. No ventriculomegaly. SKULL: No acute fracture. SINUSES: Unremarkable as visualized. No acute sinusitis. MASTOID AIR CELLS: Unremarkable as visualized. No mastoid effusion. VERTEBRAE: Reversal of the cervical lordosis. Normal alignment. No acute fracture. DISCS/SPINAL CANAL/NEURAL FORAMINA: No acute findings. No spinal canal stenosis. SOFT TISSUES: Parietal scalp midline swelling. LUNG APICES: Visualized lung zones are clear. IMPRESSION: 1. Parietal scalp midline swelling. 2. Reversal of the cervical lordosis. Findings may be positional or due to muscle spasm. 3. No acute intracranial abnormality. 4. No acute cervical spine fracture or subluxation. 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 The interpreting radiologist is fully responsible for the content of the report.
--- NOTE | 2023-04-21 16:47 | RAD REPORT ---
EXAM DESCRIPTION: Elbow Right 3 View XR Right Elbow 3 Views CLINICAL HISTORY: Pain COMPARISON: None. TECHNIQUE: Right Elbow 3 Views FINDINGS: Suboptimal lateral view patient positioning. No fracture or dislocation. No significant sclerotic/lytic bone lesion. Joint spaces unremarkable. Soft tissues unremarkable. IMPRESSION: Unremarkable Right Elbow Radiographs. Electronically signed by: Gerard Adkins MD 04/21/2023 01:17 AM DIRECTOR HEDIS Due to temporary technical issues with the PACS/Fluency reporting system, reports are being signed by the in house radiologists without review as a courtesy to insure prompt reporting. The interpreting radiologist is fully responsible for the content of the report.
== END 2023-04-21 03:40 | disposition home or self-care (01) ==
LOC: ER 23:36
PROC: 0HQ0XZZ Repair Scalp Skin, External Approach (ICD-10-PCS; principal; 2023-04-20)
DX: S01.01XA Laceration without foreign body of scalp, initial encounter (principal); S50.01XA Contusion of right elbow, initial encounter; W01.0XXA Fall on same level from slipping, tripping and stumbling without subsequent striking against object, initial encounter; Y92.009 Unspecified place in unspecified non-institutional (private) residence as the place of occurrence of the external cause; E11.9 Type 2 diabetes mellitus without complications; I10 Essential (primary) hypertension; E78.00 Pure hypercholesterolemia, unspecified; F41.9 Anxiety disorder, unspecified; F31.9 Bipolar disorder, unspecified; F17.210 Nicotine dependence, cigarettes, uncomplicated
CPT/HCPCS: 70450; 72125; 96372; 99285

== ENCOUNTER 2023-12-27 17:48 | Emergency (ER) | payer OTHER ==
[2023-12-27 19:02] LABS: Specific Gravity 1.011 (1.005-1.030)
[2023-12-27 19:03] LABS: Specific Gravity 1.011 (1.005-1.030); Urine Bilirubin NEGATIVE (Negative); Urine Blood Negative (Negative); Urine Clarity Clear (Clear); Urine Color Colorless (Yellow); Urine Glucose NEGATIVE (Negative); Urine Ketones NEGATIVE (Negative); Urine Microscopic Reflex YN NO UMIC; Urine Nitrite NEGATIVE (Negative); Urine Protein NEGATIVE (Negative); Urine Urobilinogen Normal (Normal); Urine pH 6.5 (5.0-7.0)
[2023-12-27 20:03] LABS: Absolute Basophils 0.1 K/uL (0-0.5); Absolute Eosinophils 0.1 K/uL (0-0.5); Absolute Lymphocytes (CBC) 2.5 K/uL (0.7-4.9); Absolute Monocytes 0.5 K/uL (0.1-1.3); Absolute Neutrophil 5.7 K/uL (1.8-8.0); Basophils % 0.8 % (0-1.3); Eosinophils % 1.4 % (0-4.4); Hematocrit 40.5 % (36.0-45.0); Hemoglobin 14.2 g/dL (12.0-15.0); Lymphocytes % 28.6 % (15.3-44.8); MCH 32.4 pg (27.0-35.0); MCHC 35.2 g/dL (32.0-36.0); MPV 8.4 fL (7.6-11.3); Monocytes % 5.1 % (3.3-12.3); Neutrophils % 64.1 % (41.7-73.7); Nucleated Red Blood Cells % 0.1 % (0-0); Platelets 290 thou/uL (152-406); Red Cell Distribution Width 12.3 % (12.1-15.2)
[2023-12-27] MEDS ORDERED: KETOROLAC 30 MG/ML INJ ONE (20:05)
[2023-12-27] MEDS ORDERED: ONDANSETRON 4 MG/2 ML VIAL ONE (20:05)
[2023-12-27] MEDS ORDERED: cloNIDine HCL 0.1 MG TAB ONE (20:06)
[2023-12-27] MEDS ORDERED: NA CHLORIDE 0.9% 1,000 ML ONE (20:06)
[2023-12-27 20:22] LABS: Albumin 3.6 g/dL (3.4-5.0); Albumin/Globulin Ratio 0.8 (1.1-1.8); Anion Gap 9.8 mEq/L (5.0-15.0); Bilirubin Total 0.4 mg/dL (0.2-1.0); Globulin 4.3 g/dL (2.3-3.5); Potassium 3.8 mEq/L (3.5-5.1); Protein, Total 7.9 g/dL (6.4-8.2)
[2023-12-27] MEDS ORDERED: MORPHINE 4 MG/ML SYR ONE (20:56)
--- NOTE | 2023-12-27 21:48 | RAD REPORT ---
EXAMINATION: CT ABDOMEN AND PELVIS WITH CONTRAST CLINICAL INDICATION: ABD PAIN TECHNIQUE: CT abdomen and pelvis was performed, after the administration of IV contrast, as per [facility] protocol. Axial, sagittal and coronal reconstructions were obtained. One or more of the following dose reduction techniques were used: Automated exposure control, adjustment of the mA and k V according to patient size, and iterative reconstruction. Unless otherwise specified, incidental findings do not require dedicated imaging follow-up. COMPARISON: No prior exam. FINDINGS: LOWER CHEST: The visualized lung bases are clear. LIVER: Mild fatty liver is present. No focal lesion or biliary dilatation is seen. Cholecystectomy clips. SPLEEN: Normal size. No focal lesion. PANCREAS: No mass, ductal dilation, or pedro-pancreatic fluid. ADRENALS: Normal; no mass. KIDNEYS: Normal size and contour. No hydronephrosis. GASTROINTESTINAL TRACT: No evidence of free air, significant intra-abdominal free fluid, bowel obstru ction or abscess. APPENDIX: Normal appendix. LYMPH NODES: No lymphadenopathy. MUSCULOSKELETAL: No acute or suspicious osseous abnormality. ADDITIONAL FINDINGS: Small fat-containing bleb or hernia. IMPRESSION: No acute or concerning abnormalities seen in the abdomen or pelvis. Mild fatty liver.
--- NOTE | 2023-12-27 22:06 | EDPHYS ---
Physician Documentation [facility] Name: Claribel Teague Age: 48 yrs Sex: Female : 1975 Arrival Date: 12/27/2023 Time: 17:48 Bed 5 Private MD: ED Physician Will Galvan HPI: 12/26 18:37 This 48 yrs old Female presents to ER via Unassigned with complaints of kb Weakness, Nausea. 18:37 Pt is a 48 year old female who presents for nausea, weakness and left groin pain that kb started 3 days ago. Also reports rash to vaginal area with itching. Pt has history of hypertension and diabetes, but has been out of medications for "a while." Denies urinary symptoms, vomiting, diarrhea. . 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 - Infectious Disease History:: Denies. - Social history:: Smoking status: Patient/guardian denies using tobacco. ROS: 18:37 Constitutional: As per HPI kb Exam: 18:37 Constitutional: This is a well developed, well nourished patient who is awake, alert, kb and in no acute distress. Head/Face: Normocephalic, atraumatic. ENT: Moist Mucous membranes Cardiovascular: Regular rate Respiratory: Respirations even and unlabored. No increased work of breathing. Talking in full sentences Abdomen/GI: Soft, non-tender. No distention Skin: Warm, dry with normal turgor. Normal color. MS/ Extremity: Pulses equal, no cyanosis. Neurovascular intact. Full, normal range of motion. Neuro: Awake and alert, GCS 15, oriented to person, place, time, and situation. 22:31 ECG was reviewed by the Attending Physician. kb Vital Signs: 18:35 BP 185 / 124; Pulse 85; Resp 16; Temp 97; Pulse Ox 100% ; ko1 19:46 BP 171 / 109; Pulse 70; Resp 18; Pulse Ox 97% ; cp4 20:38 BP 168 / 104; Pulse 65; Resp 18; Pulse Ox 100% ; cp4 21:16 BP 151 / 90; Pulse 55; Resp 18; Pulse Ox 98% ; cp4 22:05 BP 123 / 84; Pulse 60; Resp 18; Pulse Ox 99% ; cp4 MDM: 18:15 Medical Screening Exam initiated kb 21:55 Data reviewed: vital signs, nurses notes. kb 22:03 Differential diagnosis: non-specific abd pain, urinary tract infection, candidiasis. kb Counseling: I had a detailed discussion with the patient and/or guardian regarding the historical points, exam findings, and any diagnostic results supporting the discharge/admit diagnosis, lab results, radiology results, the need for outpatient follow up, a family practitioner, to return to the emergency department if symptoms worsen or persist or if there are any questions or concerns that arise at home. 12/26 18:41 Order name: CBC with Diff; Complete Time: 20:18 kb 12/26 18:41 Order name: CMP; Complete Time: 20:24 kb 12/26 18:41 Order name: Lipase; Complete Time: 20:24 kb 12/26 18:42 Order name: Test, Urine; Complete Time: 19:09 kb 12/26 18:42 Order name: Urinalysis w/ reflexes; Complete Time: 19:09 kb 12/26 20:50 Order name: CT Abd/Pelvis - IV Contrast Only; Complete Time: 21:55 kb 12/26 18:41 Order name: EKG; Complete Time: 18:41 kb 12/26 18:41 Order name: IV Saline Lock; Complete Time: 20:03 kb 12/26 18:41 Order name: Labs collected and sent; Complete Time: 20:03 kb 12/26 18:41 Order name: EKG - Nurse/Tech; Complete Time: 20:03 kb EC:31 Rate is 63 beats/min. Rhythm is regular. QRS [place] is Normal. IA interval is normal at kb 156 msec. QRS interval is normal at 86 msec. QT interval is normal at 427 msec. Administered Medications: 20:04 Not Given (Duplicate Order): ns 0.9% 1000 ml IV at 1000 ml once; to be given as a bolus kb over 60 minutes 20:10 Drug: cloNIDine PO 0.1 mg PO once Route: PO; cp4 20:58 Follow up: Response: No adverse reaction; Blood pressure is unchanged cp4 20:11 Drug: TORadol - Ketorolac IVP 15 mg IVP once Route: IVP; Site: right antecubital; cp4 20:58 Follow up: Response: No adverse reaction; Pain is decreased cp4 20:11 Drug: Ondansetron IVP 4 mg IVP once; over 2 minutes Route: IVP; Site: right antecubital;cp4 20:58 Follow up: Response: No adverse reaction cp4 20:11 Drug: NS 0.9% IV 1000 ml IV at 1 bolus Per protocol; to be given as a bolus over 60 cp4 minutes Route: IV; Rate: 1 bolus; Site: right antecubital; 21:46 Follow up: Response: No adverse reaction; IV Status: Completed infusion cp4 20:57 Drug: morphine IVP or IV 4 mg IVP once over 4 mins Route: IVP; Infused Over: 4 mins; cp4 Site: right antecubital; 21:48 Follow up: Response: No adverse reaction; Pain is decreased cp4 Disposition: 12/27 09:52 Co-signature as Attending Physician, Will Galvan MD I reviewed the patient's care rn provided by the Advanced Practice Provider and agree with the diagnosis and treatment plan. Disposition Summary: 12/27/23 22:06 Discharge Ordered Notes: Location: Home kb Condition: Stable kb Diagnosis - Lower abdominal pain, unspecified kb - Essential (primary) hypertension kb - Candidiasis of other sites kb Followup: kb - With: Emergency Department - When: As needed - Reason: Worsening of condition Followup: kb - With: Private Physician - When: 2 - 3 days - Reason: Recheck today's complaints, Continuance of care, Re-evaluation by your physician Discharge Instructions: - Discharge Summary Sheet kb - Abdominal Pain, Adult, [id number] kb - Hypertension, Adult, [id number] kb - Skin Yeast Infection kb Forms: - Medication Reconciliation Form kb - Antibiotic Education kb - Prescription Opioid Use kb - Patient Portal Instructions kb - Leadership Thank You Letter kb Prescriptions: - nystatin 100,000 unit/gram Topical cream - apply 1 application TOPICAL route 2 times per day; 1 unit; Refills: 0, Product kb Selection Permitted - Zofran 4 mg Oral tablet - take 1 tablet ORAL route every 6 hours As needed; 12 tablet; Refills: 0, kb Product Selection Permitted - Diclofenac Sodium 75 mg Oral tablet, delayed release (enteric coated) - take 1 tablet ORAL route 2 times per day As needed; 30 tablet; Refills: 0, kb Product Selection Permitted Signatures: Dispatcher [employer] Awilda Robles, BRII KOLBP-Will Doshi MD MD rn Oliver, Kathy, RN RN [email or web address] Therese Flores cp4 Corrections: (The following items were deleted from the chart) 12/26 20:50 20:50 Abdomen Pelvis W [id number] ordered. EDMS EDMS
--- NOTE | 2023-12-27 22:06 | ER ---
Nurse's Notes [facility] Name: Claribel Teague Age: 48 yrs Sex: Female : 1975 Arrival Date: 12/27/2023 Time: 17:48 Bed 5 Private MD: Diagnosis: Lower abdominal pain, unspecified;Essential (primary) hypertension;Candidiasis of other sites Presentation: 12/26 18:35 Chief complaint: Patient states: for past 3 days feeling weak and nauseated, pain in ko1 left lower abdomen. Coronavirus screen: At this time, the client does not indicate any symptoms associated with coronavirus-19. Ebola Screen: No symptoms or risks identified at this time. 18:35 Method Of Arrival: Ambulatory ko1 18:39 Initial Sepsis Screen: Does the patient meet any 2 criteria? No. Patient's initial ko1 sepsis screen is negative. Does the patient have a suspected source of infection? No. Patient's initial sepsis screen is negative. Risk Assessment: Do you want to hurt yourself or someone else? Patient reports no desire to harm self or others. Onset of symptoms is unknown. 18:39 Acuity: CLOVIS 3 ko1 Triage Assessment: 18:39 General: Appears in no apparent distress. Behavior is calm, cooperative, appropriate ko1 for age. Pain: Complains of pain in left lower quadrant. 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 - Infectious Disease History:: Denies. - Social history:: Smoking status: Patient/guardian denies using tobacco. Screenin:43 [facility] ED Fall Risk Assessment (Adult) History of falling in the last 3 months, cp4 including since admission No falls in past 3 months (0 pts) Confusion or Disorientation No (0 pts) Intoxicated or Sedated No (0 pts) Impaired Gait No (0 pts) Mobility Assist Device Used No (0 pt) Altered Elimination No (0 pt) Score/Fall Risk Level 0 - 2 = Low Risk Oriented to surroundings, Maintained a safe environment, Assessed \T\ reinforced patient's understanding of fall precautions, Hourly rounding (assess needs \T\ fall precautionary measures) done. Abuse screen: Denies threats or abuse. Nutritional screening: No deficits noted. Tuberculosis screening: No symptoms or risk factors identified. Assessment: 19:43 General: Appears in no apparent distress. uncomfortable, Behavior is calm, cooperative, cp4 appropriate for age. Pain: Complains of pain in abdomen and left lower quadrant Pain currently is 9 out of 10 on a pain scale. Neuro: Level of Consciousness is awake, alert, obeys commands, Oriented to person, place, time, situation. Cardiovascular: Patient's skin is warm and dry. Respiratory: Airway is patent Respiratory effort is even, unlabored. GI: Abdomen is flat, non-distended, Bowel sounds present X 4 quads. Abd is soft and non tender X 4 quads. : No signs and/or symptoms were reported regarding the genitourinary system. EENT: No signs and/or symptoms were reported regarding the EENT system. Derm: No signs and/or symptoms reported regarding the dermatologic system. Musculoskeletal: No signs and/or symptoms reported regarding the musculoskeletal system. 21:00 Reassessment: Patient appears in no apparent distress at this time. Patient and/or cp4 family updated on plan of care and expected duration. Pain level reassessed. Patient is alert, oriented x 3, equal unlabored respirations, skin warm/dry/pink. 22:00 Reassessment: Patient appears in no apparent distress at this time. Patient and/or cp4 family updated on plan of care and expected duration. Pain level reassessed. Patient is alert, oriented x 3, equal unlabored respirations, skin warm/dry/pink. Vital Signs: 18:35 BP 185 / 124; Pulse 85; Resp 16; Temp 97; Pulse Ox 100% ; ko1 19:46 BP 171 / 109; Pulse 70; Resp 18; Pulse Ox 97% ; cp4 20:38 BP 168 / 104; Pulse 65; Resp 18; Pulse Ox 100% ; cp4 21:16 BP 151 / 90; Pulse 55; Resp 18; Pulse Ox 98% ; cp4 22:05 BP 123 / 84; Pulse 60; Resp 18; Pulse Ox 99% ; cp4 ED Course: 18:11 Patient arrived in ED. mg5 18:15 Awilda Sheffield FNP-C is PHCP. kb 18:15 Will Galvan MD is Attending Physician. kb 18:39 Triage completed. ko1 18:39 Arm band placed on right wrist. Patient placed in waiting room, Patient notified of ko1 wait time. 18:56 Test, Urine Sent. ko1 18:56 Urinalysis w/ reflexes Sent. ko1 18:56 Urine collected: clean catch specimen, cloudy. ko1 19:43 Therese Flores is Primary Nurse. cp4 19:43 Bed in low position. Call light in reach. Side rails up X 1. Provided Education on: cp4 abdominal pain. 19:43 No provider procedures requiring assistance completed. cp4 21:41 CT Abd/Pelvis - IV Contrast Only In Process Unspecified. EDMS 22:21 intact, bleeding controlled, No redness/swelling at site. Pressure dressing applied. cp4 Administered Medications: 20:04 Not Given (Duplicate Order): ns 0.9% 1000 ml IV at 1000 ml once; to be given as a bolus kb over 60 minutes 20:10 Drug: cloNIDine PO 0.1 mg PO once Route: PO; cp4 20:58 Follow up: Response: No adverse reaction; Blood pressure is unchanged cp4 20:11 Drug: TORadol - Ketorolac IVP 15 mg IVP once Route: IVP; Site: right antecubital; cp4 20:58 Follow up: Response: No adverse reaction; Pain is decreased cp4 20:11 Drug: Ondansetron IVP 4 mg IVP once; over 2 minutes Route: IVP; Site: right antecubital;cp4 20:58 Follow up: Response: No adverse reaction cp4 20:11 Drug: NS 0.9% IV 1000 ml IV at 1 bolus Per protocol; to be given as a bolus over 60 cp4 minutes Route: IV; Rate: 1 bolus; Site: right antecubital; 21:46 Follow up: Response: No adverse reaction; IV Status: Completed infusion cp4 20:57 Drug: morphine IVP or IV 4 mg IVP once over 4 mins Route: IVP; Infused Over: 4 mins; cp4 Site: right antecubital; 21:48 Follow up: Response: No adverse reaction; Pain is decreased cp4 Medication: 19:43 VIS not applicable for this client. cp4 Outcome: 22:06 Discharge ordered by . kb 22:21 Discharged to home ambulatory, cp4 22:21 Condition: stable 22:21 Discharge instructions given to patient, family, Instructed on discharge instructions, follow up and referral plans. medication usage, Demonstrated understanding of instructions, follow-up care, medications, Prescriptions given X 3, 22:24 Patient left the ED. cp4 Signatures: Dispatcher [employer] EDMS Awilda Sheffield, VEHICLE TRIMMER-C VEHICLE TRIMMER-CkCarmelina Corona, BRANDON RN ko1 Apurva Rocha mg5 Therese Flores cp4
[2023-12-27 22:29] VITALS: TEMP 97
[2023-12-27 22:34] VITALS: BP 123/84; O2SAT 99
== END 2023-12-27 22:24 | disposition home or self-care (01) ==
LOC: ER 17:48
DX: B37.89 Other sites of candidiasis (principal); I10 Essential (primary) hypertension
CPT/HCPCS: 85025; 36415; 81025; 81003; 83690; 80053; 74177; Q9967; J2405; J7030

== ENCOUNTER 2024-06-11 16:35 | Emergency (ER) | payer OTHER ==
--- OUTSIDE RECORDS SUMMARY | 2024-06-11 16:40 | XMS REPORT | Continuity of Care Document ---
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 1.2.840.114 350.1.13.10 4.2.7.2.686 [id number] [facility] 2023-04-13 09:57:46 2023-04-13 23:59:00 Outpatient R PROSPER BROOKS [facility] [id number] [facility] 2023-04-13 09:40:00 2023-04-13 23:59:00 Hospital Encounter Prosper Brooks [facility] 1.2.840.114 350.1.13.10 4.2.7.2.686 [id number] [facility] 2023-04-11 10:30:00 2023-04-11 10:30:00 Office Visit Kaykay Augustinesol [facility] 1.20.114 350.1.13.10 4.2.7.2.686 [id number] [facility] 2023-04-11 10:30:00 2023-04-11 10:15:26 Outpatient R BIPIN Tabares, BELLERoopa Tabares [facility] [id number] [facility] 2023-04-06 00:00:00 2023-04-06 00:00:00 Telephone Bipin tabares [facility] 1..114 350.1.13.10 4.2.7.2.686 [id number] [facility] 2023-03-24 00:00:00 2023-03-24 00:00:00 Outpatient R PROSPER BROOKS [facility] [id number] [facility] 2023-03-17 10:50:07 2023-03-17 23:59:00 Outpatient R PROSPER BROOKS [facility] [id number] [facility] 2023-03-17 10:50:07 2023-03-17 23:59:00 Hospital Encounter Prosper Brooks [facility] 1..114 350.1.13.10 4.2.7.2.686 [id number] [facility] 2023-03-17 10:45:00 2023-03-17 11:00:00 Psych Nurse Visit Pob, Adc Lab Main Burt [facility] 1.0.114 350.1.13.10 4.2.7.2.686 [id number] [facility] 2023-03-17 10:00:00 2023-03-17 10:36:32 Office Visit Prosper Brooks [facility] 1.2840.114 350.1.13.10 4.2.7.2.686 [id number] [facility] 2023-03-13 00:00:00 2023-03-13 00:00:00 Telephone Josue Brooksssica [facility] 1.2840.114 350.1.13.10 4.2.7.2.686 [id number] [facility] 2023-03-07 14:00:00 2023-03-07 14:48:32 Outpatient R BELLE AUGUSTINE MARISOL [facility] [id number] [facility] 2023-03-07 14:00:00 2023-03-07 14:48:32 Office Visit [place] [facility] 1..114 350.1.13.10 4.2.7.2.686 [id number] [facility] 2023-03-03 00:00:00 2023-03-03 00:00:00 Patient Secure Msg Doctor Unassigned, [place] [facility] 1.2.114 350.1.13.10 4.2.7.2.686 [id number] [facility] 2023-02-17 09:30:00 2023-02-17 10:02:17 Outpatient R PROSPER BROOKS [facility] [id number] [facility] 2023-02-17 09:30:00 2023-02-17 10:02:17 Office Visit Josue Brooksssica [facility] 1.2840.114 350.1.13.10 4.2.7.2.686 [id number] [facility] 2023-02-17 00:00:00 2023-02-17 00:00:00 Orders Only Doctor Unassigned, [place] [facility] 1.2.840.114 350.1.13.10 4.2.7.2.686 [id number] [facility] 2023-02-17 00:00:00 2023-02-17 00:00:00 Telephone Prosper Brooks [facility] PROFESS[facility] 1.2.840.114 350.1.13.10 4.2.7.2.686 [id number] [facility] 2022-03-26 21:40:00 2022-03-26 23:09:00 Emergency X Nel GUZMAN [facility] ERT [id number] [facility] 2022-03-26 21:40:00 2022-03-26 23:09:00 Emergency Nel Guzmange [facility] 1.2.840.114 350.1.13.10 4.2.7.2.686 [id number] [facility] 2019-05-13 00:00:00 2019-05-13 00:00:00 Orders Only Doctor Unassigned, [place] [facility] 1.2.840.114 350.1.13.10 4.2.7.2.686 [id number] [facility] 2019-04-04 00:00:00 2019-04-04 00:00:00 Orders Only Doctor Unassigned, [place] [facility] 1.2.840.114 350.1.13.10 4.2.7.2.686 [id number] [facility] 2018-12-24 00:00:00 2018-12-24 00:00:00 Outpatient KEVIN SCOTT [facility] NUT [id number] [facility] Results Test Description Test Time Test Comments Results Resul t Comments Source MR LUMBAR SPINE WO CONTRAST 19:24:07 MR LUMBAR SPINE WO CONTRAST, MR CERVICAL SPINE WO CONTRAST HISTORY: Female 47 years Low back pain, symptoms persist with > 6 wkstreatment COMPARISON: Cervical and lumbar radiographs dated 12/22/2017 TECHNIQUE: Multiplanar multi weighted imaging of the cervical spine wasobtained without IV contrast FINDINGS: MRI cervical spine: The cervical vertebral bodies are normal in height and in normal alignment.Incidenta l note is made of small Schmorl's nodes resulting in chronic, mildsuperior endplate height loss in the T2-T4 vertebra. The cervical cord is normal in caliber and demonstrates normal signalintensity. The background marrow signal is unremarkable. The intervertebral discheights are preserved. No significant degenerative changes are present. No spinal canal stenosisor neural foraminal narrowing is present at any level. MRI lumbar spine: The vertebral bodies are normal in height and in normal alignment. Theconus terminates at the level of L1-L2. The cauda equina nerve roots areunremarkable. The background marrow signal is unremarkable. The intervertebral discsremain well-hydrated. L1-L2: No significant spinal canal stenosis or neural foraminal narrowing L2-L3: No significant spinal canal stenosis or neural foraminal narrowing L3-L4: No significant spinal canal stenosis or neural foraminal narrowing L4-L5: Mild facet arthropathy results in no significant spinal canalstenosis or neural foraminal narrowing L5-S1: Mild facet arthropathy results in no significant spinal canalstenosis or neural foraminal narrowing [facility] MR CERVICAL SPINE WO CONTRAST 19:24:07 MR LUMBAR SPINE WO CONTRAST, MR CERVICAL SPINE WO CONTRAST HISTORY: Female 47 years Low back pain, symptoms persist with > 6 wkstreatment COMPARISON: Cervical and lumbar radiographs dated 12/22/2017 TECHNIQUE: Multiplanar multi weighted imaging of the cervical spine wasobtained without IV contrast FINDINGS: MRI cervical spine: The cervical vertebral bodies are normal in height and in normal alignment.Incidenta l note is made of small Schmorl's nodes resulting in chronic, mildsuperior endplate height loss in the T2-T4 vertebra. The cervical cord is normal in caliber and demonstrates normal signalintensity. The background marrow signal is unremarkable. The intervertebral discheights are preserved. No significant degenerative changes are present. No spinal canal stenosisor neural foraminal narrowing is present at any level. MRI lumbar spine: The vertebral bodies are normal in height and in normal alignment. Theconus terminates at the level of L1-L2. The cauda equina nerve roots areunremarkable. The background marrow signal is unremarkable. The intervertebral discsremain well-hydrated. L1-L2: No significant spinal canal stenosis or neural foraminal narrowing L2-L3: No significant spinal canal stenosis or neural foraminal narrowing L3-L4: No significant spinal canal stenosis or neural foraminal narrowing L4-L5: Mild facet arthropathy results in no significant spinal canalstenosis or neural foraminal narrowing L5-S1: Mild facet arthropathy results in no significant spinal canalstenosis or neural foraminal narrowing [facility] BI SCREENING TOMOSYNTHESIS BILATERAL 2023-03-17 9 16:56:53 [...] node. ?Further evaluation is recommended for confirmation Recommendation:Spot compression with possible ultrasound - LeftAnnual mammographic follow-up - Right BI-RADS Category: Left: 0 - Incomplete: Needs Additional Imaging EvaluationRight: 1 - NegativeOverall: 0 - Incomplete: Needs Additional Imaging [facility] Kowuvqk6936-37-40 19:00:13 * Test Item Value Reference Range Interpretation Comme nts TSH (test code = 5948617735) 1.23 0.45-4.70 Lab Interpretation (test cod e = 94065-0) [facility] [id number] 18:46:13* Test Item Value Reference Range Interpretation Comme nts FREE T4 (test code = 6897492853) 1.29 0.78-2.20 Lab Interpretation (test cod e = 99524-5) Normal [facility] [id number] 18:46:13* Test Item Value Reference Range Interpretation Comme nts FREE T4 (test code = 7302625386) 1.29 0.78-2.20 Lab Interpretation (test cod e = 67318-7) Normal [facility] Center[facility] (32361)(Total Cholesterol, Triglycerides, HDL)2023-03-17 18:45:32* Test Item Value Reference Range Interpretation Comme nts CHOL (test code = 5047078730) 233 mg/dL 120-200 H HDL (test code = 5914026518) 54 mg/dL >=50 HDLC RATIO (test code = 5540335034) 4.3 <=4.5 TRIG (test code = 9643832095) 174 mg/dL 30-170 H LDL CHOL (test code = 16555-3) 144 mg/dL <=160 VLDL (test code = 5048371276) 35 mg/dL 5-60 Lab Interpretation (test cod e = 63866-1) Abnormal [facility] (94297)(Total Cholesterol, Triglycerides, HDL)2023-03-17 18:45:32* Test Item Value Reference Range Interpretation Comme nts CHOL (test code = 8755067266) 233 mg/dL 120-200 H HDL (test code = 9960631869) 54 mg/dL >=50 HDLC RATIO (test code = 2685235343) 4.3 <=4.5 TRIG (test code = 5145328777) 174 mg/dL 30-170 H LDL CHOL (test code = 28724-6) 144 mg/dL <=160 VLDL (test code = 5765013406) 35 mg/dL 5-60 Lab Interpretation (test cod e = 41347-5) Abnormal [facility] CenterMagnesium2024-02-02 18:45:12* Test Item Value Reference Range Interpretation Comme nts MAGNESIUM (test code = 8864234787) 1.7 mg/dL 1.7-2.4 Lab Interpretation (test cod e = 28009-6) Normal [facility]. Met[facility] Panel (34910)2023-03-17 18:44:51* Test Item Value Reference Range Interpretation Comme nts NA (test code = 9104494383) 140 mmol/L 135-145 K (test code = 5824413277) 3.6 mmol/L 3.5-5.0 CL (test code = 9443147751) 108 mmol/L 98-108 CO2 TOTAL (test code = 4601146973) 24 mmol/L 23-31 AGAP (test code = 8139579858) 8 2-16 BUN (test code = 3667567489) 11 mg/dL 7-23 GLUCOSE (test code = 7158080463) 156 mg/dL 70-110 H CREATININE (test code = 5168634940) 0.52 mg/dL 0.50-1.04 TOTAL BILI (test code = 3021593862) 0.9 mg/dL 0.1-1.1 CALCIUM (test code = 5212334964) 9.9 mg/dL 8.6-10.6 T PROTEIN (test code = 1571602067) 8.0 g/dL 6.3-8.2 ALBUMIN (test code = 6266350391) 4.5 g/dL 3.5-5.0 ALK PHOS (test code = 7591884033) 74 U/L 34-122 ALTv (test code = 1742-6) 18 U/L 5-35 AST(SGOT) (test code = 8810118384) 19 U/L 13-40 eGFR (test code = 71965-7) 116.9 mL/min/1.73m2 CKD-EPI eGFR (2020). Assuming creatinine has been stable day-to-day for at least three months, the eGFR indicates Category G1 (>= 90 mL/min/1.73 m2) Lab Interpretation (test code = 75504-5) [facility]normal [facility] Panel (62154)2023-03-17 18:44:51* Test Item Value Reference Range Interpretation Comme nts NA (test code = 3684333037) 140 mmol/L 135-145 K (test code = 2763404311) 3.6 mmol/L 3.5-5.0 CL (test code = 6862475658) 108 mmol/L 98-108 CO2 TOTAL (test code = 8967328274) 24 mmol/L 23-31 AGAP (test code = 7401361374) 8 2-16 BUN (test code = 7827413667) 11 mg/dL 7-23 GLUCOSE (test code = 5229074951) 156 mg/dL 70-110 H CREATININE (test code = 5328659767) 0.52 mg/dL 0.50-1.04 TOTAL BILI (test code = 5587047688) 0.9 mg/dL 0.1-1.1 CALCIUM (test code = 7863072798) 9.9 mg/dL 8.6-10.6 T PROTEIN (test code = 3439224926) 8.0 g/dL 6.3-8.2 ALBUMIN (test code = 5624454705) 4.5 g/dL 3.5-5.0 ALK PHOS (test code = 8543687798) 74 U/L 34-122 ALTv (test code = 1742-6) 18 U/L 5-35 AST(SGOT) (test code = 5001484308) 19 U/L 13-40 eGFR (test code = 37107-8) 116.9 mL/min/1.73m2 CKD-EPI eGFR (2020). Assuming creatinine has been stable day-to-day for at least three months, the eGFR indicates Category G1 (>= 90 mL/min/1.73 m2) Lab Interpretation (test code = 92380-2) Abnormal [facility] CenterGlycosylated Hemoglobin (A1C)2023-03-17 18:25:17* Test Item Value Reference Range Interpretation Comme nts HGB A1C (test code = 4548-4) 7.0 % 4.0-5.7 H VERONA (test code = VERONA) Reference RangesNormal: <5.7%Prediabetes: 5.7 - 6.4%Diabetes: > 6.5% Lab Interpretation (test code = 40225-0) Abnormal [facility] CenterGlycosylated Hemoglobin (A1C)2023-03-17 18:25:17* Test Item Value Reference Range Interpretation Comme nts HGB A1C (test code = 4548-4) 7.0 % 4.0-5.7 H VERONA (test code = VERONA) Reference RangesNormal: <5.7%Prediabetes: 5.7 - 6.4%Diabetes: > 6.5% Lab Interpretation (test code = 91036-7) Abnormal [facility] with Pbbz6691-17-97 17:38:00* Test Item Value Reference Range Interpretation [...] 35.0 g/dL 31.6-35.1 RDW-SD (test code = 94186-0) 40.7 fL 39.0-49.9 RDW-CV (test code = 788-0) 12.1 % 12.0-15.5 PLT (test code = 777-3) 248 166-358 MPV (test code = 27118-1) 10.7 fL 9.5-12.9 NRBC/100 WBC (test code = 4818374922) 0.0 0.0-10.0 NRBC x10^3 (test code = 8413863041) See_Comment [Automated messa ge] The system which generated this result transmitted reference range: 10*3/?L. The reference range was not used to interpret this result as normal/abnormal. GRAN MAT (NEUT) % (test code = 770-8) 69.8 % IMM GRAN % (test code = 4333102364) 0.30 % LYMPH % (test code = 736-9) 24.3 % MONO % (test code = 5905-5) 4.1 % EOS % (test code = 713-8) 1.1 % BASO % (test code = 706-2) 0.4 % GRAN MAT x10^3(ANC) (test code = 7279018706) 5.14 10*3/uL 1.88-7.09 IMM GRAN x10^3 (test code = 0130288467) 0.00-0.06 LYMPH x10^3 (test code = 731-0) 1.79 10*3/uL 1.32-3.29 MONO x10^3 (test code = 742-7) 0.30 10*3/uL 0.33-0.92 L EOS x10^3 (test code = 711-2) 0.08 10*3/uL 0.03-0.39 BASO x10^3 (test code = 704-7) 0.03 10*3/uL 0.01-0.07 Lab Interpretation (test code = 70907-5) Abnormal [facility] with Zsgv3900-60-00 17:38:00* Test Item Value Reference Range Interpretation [...] 35.0 g/dL 31.6-35.1 RDW-SD (test code = 42252-5) 40.7 fL 39.0-49.9 RDW-CV (test code = 788-0) 12.1 % 12.0-15.5 PLT (test code = 777-3) 248 166-358 MPV (test code = 81135-6) 10.7 fL 9.5-12.9 NRBC/100 WBC (test code = 2572987397) 0.0 0.0-10.0 NRBC x10^3 (test code = 3833731808) See_Comment [Automated messa ge] The system which generated this result transmitted reference range: 10*3/?L. The reference range was not used to interpret this result as normal/abnormal. GRAN MAT (NEUT) % (test code = 770-8) 69.8 % IMM GRAN % (test code = 3086849955) 0.30 % LYMPH % (test code = 736-9) 24.3 % MONO % (test code = 5905-5) 4.1 % EOS % (test code = 713-8) 1.1 % BASO % (test code = 706-2) 0.4 % GRAN MAT x10^3(ANC) (test code = 0559152945) 5.14 10*3/uL 1.88-7.09 IMM GRAN x10^3 (test code = 9213445999) 0.00-0.06 LYMPH x10^3 (test code = 731-0) 1.79 10*3/uL 1.32-3.29 MONO x10^3 (test code = 742-7) 0.30 10*3/uL 0.33-0.92 L EOS x10^3 (test code = 711-2) 0.08 10*3/uL 0.03-0.39 BASO x10^3 (test code = 704-7) 0.03 10*3/uL 0.01-0.07 Lab Interpretation (test code = 38552-8) Abnormal [facility] MOLECULAR UQVKE8985-47-42 16:31:50* Test Item Value Reference Range Interpretation Comme nts POCT Molecular Strep (test c ode = 45314-7) Negative Negative Lab Interpretation (test cod e = 52077-7) Normal [facility] MOLECULAR IYQZJ3764-11-62 16:31:50* Test Item Value Reference Range Interpretation Comme nts POCT Molecular Strep (test c ode = 10175-5) Negative Negative Lab Interpretation (test cod e = 91113-1) Normal [facility] Urinalysis W Specific Zgujyjn6078-40-43 15:55:00* Test Item Value Reference Range Interpretation [...] Hazy Lab Interpretation (test cod e = 04300-1) Abnormal [facility] Urinalysis W Specific Ubqomfy2755-97-99 15:55:00* Test Item Value Reference Range Interpretation [...] Hazy Lab Interpretation (test cod e = 36359-8) Abnormal [facility] Urinalysis W Specific Rrazqpj5807-17-61 15:55:00* Test Item Value Reference Range Interpretation [...] Hazy Lab Interpretation (test cod e = 02746-4) [facility]normal [facility] Qlpcadukbbu3021-02-37 16:15:49* Test Item Value Reference Range Interpretation [...] = Expiration Dt) 10.31.20 N Thyroid Stimulating Iezdrvt2682-96-05 21:53:18* Test Item Value Reference Range Interpretation Comme nts TSH (test code = TSH) 3.260 mIU/mL 0.270-4.200 Lipid Cscbo9454-12-85 21:49:06* Test Item Value Reference Range Interpretation Comme nts Cholesterol Total (test code = Cholesterol Total) 242 mg/dL 0-200 H RISK OF HEART DISEASEPublished by [place] [employer] Analyte Optimal Borderline Increased RiskCHOL [...] is LDL/HDL Ratio=LDL Calc/HDL Chol HCG Qualitative Lxeuj9663-62-59 21:36:21* Test Item Value Reference Range Interpretation Comme nts HCG, Serum Qual (test code = HCG, Serum Qual) Negative Lot # (test code = Lot #) [id number] N Expiration Dt (test code = Expiration Dt) 2020-04-12 N Neg Control (test code = Neg Control) Negative Pos Control (test code = Pos Control) Positive Internal QC (test code = Int ernal QC) Acceptable Urine Drug [id number] 15:28:09* Test Item Value Reference Range Interpretation [...] separate confirmatory test if desired. Comprehensive Metabolic [id number] 14:57:03* Test Item Value Reference Range Interpretation [...] A/G Ratio) 1.7 ratio N Comprehensive Metabolic [id number] 14:57:03* Test Item Value Reference Range Interpretation [...] is not provided, and the patient is [place], multiply by 1.212. If sex is not [...] by the [employer], http://nkdep.nih.gov Alcohol [id number] 14:57:03* Test Item Value Reference Range Interpretation Comme nts Ethanol Level (test code = Ethanol Level) <0.00 g/dL 0.00-0.01 Intoxicated 0.08 0 g/dL or more Ethanol Inst (test code = Ethanol Inst) <0 N Comprehensive Metabolic [id number] 14:57:03* Test Item Value Reference Range Interpretation [...] is not provided, and the patient is -[place], multiply by 1.212. If sex is not [...] is not provided, and the patient is -[place], multiply by 1.212. If sex is not [...] [facility] [employer], http://nkdep.nih.gov Urinalysis with Microscopic if [id number] 14:56:39* Test Item Value Reference Range Interpretation [...] rule GL_SJM_UA_MICRO_IN D Complete Blood Count with [id number] 14:43:33* Test Item Value Reference Range Interpretation [...] code = IPF) 0 % N Automated [id number] 14:43:33* Test Item Value Reference Range Interpretation Comme nts Neutro Auto (test code = Brett tro Auto) 55.2 % 36.0-70.0 Lymph Auto (test code = Lymph Auto) 37.0 % 12.0-44.0 Cayuga Auto (test code = Cayuga Auto) 5.6 % 0.0-11.0 Eos, Auto (test code = Eos, Auto) 1.7 % 0.0-7.0 Basophil Auto (test code = B asophil Auto) 0.3 % 0.0-2.0 Neutro Absolute (test code = Neutro Absolute) 3.3 x10 1.6-7.4 Lymph Absolute (test code = Lymph Absolute) 2.19 x10 .50-4.60 Cayuga Absolute (test code = M ena Absolute) .33 x10 .00-1.20 Eos Absolute (test code = Eo s Absolute) 0.10 x10 0.00-0.74 Baso Absolute (test code = B aso Absolute) 0.02 x10 0.00-0.21 IG [id number] 14:43:33* Test Item Value Reference Range Interpretation Comme nts IG (test code = IG) 0.2 % 0.0-5.0 IG Abs (test code = IG Abs) 0 x10 N KNEE, 3 [id number] 22:03:00 *.*.*.*.*.*.*.*.*.*.*.*.*.*FINAL*.*.*.*.*.*.*.*.*.*.*.*.*.*.*EXAM: KNEE, 3 VIEWS-LEFT SIDE, EXAM: TIBIA-FIBULA, 2 VIEWS-LEFT SIDE HISTORY: Evaluate left plateau alignment COMPARISON: ?04/04/2017 FINDINGS: Radiographs of the left knee and tibia-fibula demonstrate medial and lateralplate and screw fixation of the comminuted proximal tibial intra-articularfracture in stable satisfactory alignment. There is minimal interval callusformation, consistent with healing. There is unchanged 2 mm gap between thelateral tibial plate and the lateral tibial cortex. No hardware fracture orloosening. Mild articular depression is again noted at the lateral tibialplateau, unchanged. Ghost tracks are seen in the distal femur and proximaltibial shafts. There is mild diffuse swelling about the knee and the proximaltibia. ERICA SHAH MBBS ?Personally interpreted by: SUSAN DESAI MD /Signed/ RIP DESAI MDUnBaylor Scott [facility] KNEE, 3 [id number] 19:09:00 *.*.*.*.*.*.*.*.*.*.*.*.*.*FINAL*.*.*.*.*.*.*.*.*.*.*.*.*.*.*EXAM: KNEE, 3 VIEWS-LEFT SIDE HISTORY:ap/lat/obliques tibial plateau orif OUt of brace COMPARISON: 03/21/2017 FINDINGS: Imaging of the kneedemonstrates interval medial and lateral plate fixationhardware utilized to secure a comminuted proximal tibial metaphyseal fracturewith entrance into the lateral tibial plateau. Gross apposition of fracturefragments is seen with postoperative soft tissue swelling, gas and skin lena.Minimal articular incongruity is seen at the level of the lateral tibialplateau. No acute hardware complication is present. Hardware tracks extendthrough the distal femur and proximal tibia. ?Personally interprete d by: GINA ALMEIDA MD /Signed/ GINA ALMEIDA MDUnBaylor Scott [facility] Notes Date/Time Note Provider Source 2023-06-01 13:21:15 Pt notified that the office attempted to contact her x 3 (04/13 and twice on 04/17). After 3 attempts, a letter was mailed requesting that she reach out to the office to discuss results on 04/17. Pt verbalizes understanding. She has an appt for follow up breast imaging on 06/14/23. [facility] 2023-06-01 11:07:39 Called pt to go over Pelvic usg results ordered by Dr. Castellanos. During phone call pt stated she was upset due to seeing mammogram results [facility] and it appeared to be abnormal but she never received a call to go over results. Pt had mammogram done on 04/13/23. Saw that pcp resulted mammo, went over results with pt and explained that additional imaging was ordered for left breast. Apologized to pt for the delay in getting results to her. 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 Pt verbalized understanding. [facility] Bertha Davies MA [facility] 2023-05-23 08:30:00 IMPRESSION Unremarkable MRI cervical spine Mild lower lumbar facet arthropathy is present with no significant spinal canal stenosis or neural foraminal narrowing at any level. [facility] 2023-04-18 15:06:33 3rd attempt to call patient, no answer, letter has been sent out to patient to give us a call back to discuss mammogram results. Will close encounter. [facility] Dasha Durham MA [facility] 2023-04-18 11:13:25 2ns attempt to contact patient, no answer, call will not go through. Unable to LVM. [facility] 2023-04-17 14:04:58 Images from the original note were not included. Medical record consent received from [facility] faxed to [facility] Him. CLEANER Princess Wolf [facility] 2023-04-14 16:48:38 Attempted to call patient @ [phone] call will not go through. Called [phone] phone kept ringing, not able to reach patient. Isabel Moya MA 04/14/2023 4:51 PM CLEANER Isabel Moya MA [facility] 2023-04-14 16:27:07 Impression: Small mass in the upper outer left breast is most likely an intramammary lymph node. Further evaluation is recommended for confirmation Recommendation: Spot compression with possible ultrasound - Left Annual mammographic follow-up - Right BI-RADS Category: Left: 0 - Incomplete: Needs Additional Imaging Evaluation Right: 1 - Negative Overall: 0 - Incomplete: Needs Additional Imaging Evaluation I have placed orders The number for scheduling of imaging through [facility] is [phone]. [facility] 2023-04-14 11:15:00 Images from the original note were not included. Venipuncture collection performed by clean technique on the left anticubitus. Total of 1 attempts were made. Slight pressure and a bandage/dressing were applied to the site(s). The patient experienced no complications. The following specimens were processed according to instructions and sent to [facility] laboratories per lab order on 04/14/2023: LT BLUE SST 1 RED LAV 1 PPT DK GREEN (LiHep) DK GREEN (SodH) FISCHER DK BLUE (K2) DK BLUE (S) ACD Blood Culture NIPT/NTD Patient has been identified by and name and was provided with cup, antiseptic towelette, and clean catch instructions. 1 urine specimen(s) sent. Unpreserved 1 Urine Culture Aptima tube Other urine [facility] 2023-04-06 12:06:09 Dr. Puga: Order TSH with Free T4, FSH, Estrogen, Progesterone levels. Orders placed through [facility]. Patient notified. Kwaku Becerra RN 04/06/2023 12:19 PM CLEANER Kwaku Becerra RN [facility] 2023-04-06 11:04:[address] orders since pelvic US and labs done outside system. [facility] OG-OBSTETRICS & GYNECOLOGY STAFF [facility] 2023-04-06 10:26:13 Last OV note does not have written orders. Will route to provider for order clarification. Kwaku Becerra RN 04/06/2023 10:26 AM [facility] 2023-04-06 09:47:51 Patient need lab orders faxed to [facility] she misplaced orders that were given to her, she has a temporary phone at the moment so call [phone]. ASH Acuna [facility] 2023-03-17 10:45:00 Images from the original note were not included. Venipuncture collection performed by clean technique on the left anticubitus. Total of 1 attempts were made. Slight pressure and a bandage/dressing were applied to the site(s). The patient experienced no complications. The following specimens were processed according to instructions and sent to [facility] laboratories per lab order on 03/17/2023: LT BLUE SST 2 RED LAV 2 PPT DK GREEN (LiHep) DK GREEN (SodH) FISCHER DK BLUE (K2) DK BLUE (S) ACD Blood Culture NIPT/NTD Patient has been identified by and name and was provided with cup, antiseptic towelette, and clean catch instructions. 2 urine specimen(s) sent. Unpreserved 1 Urine Culture Aptima tube 1 Other urine [facility] 2023-03-13 13:49:42 Patient will wait til she gets seen by GARETT Mendez. ASH Durham MA [facility] 2023-03-13 12:08:49 Clayton Almaguer is a 47 year old female that states she received a letter from the clinic. The pt's spouse lost the letter so the pt had been calling. The pt stated that because she already scheduled for 03/17/23, she will wait until then to speak with Ms. Brooks. ASH Quiñones [facility] 2023-02-17 16:15:26 Attempted to reach , daughter answered phone left message. ASH Acuna [facility] 2023-02-17 15:30:37 Can you let patient know to stop by our lab for urine testing for STD. Best to come first thing in the AM with first void. The lab did not have enough urine for all testing, was only able to obtain culture. Still needs testing for STD [facility] 2023-02-17 09:30:00 The urine Culture has come back positive for UTI It is sensitive to the antibiotics you are taking, please continue medications [facility]
--- NOTE | 2024-06-11 16:59 | ER ---
Nurse's Notes [facility] Name: Claribel Teague Age: 48 yrs Sex: Female : 1975 Arrival Date: 06/11/2024 Time: 16:35 Bed IW8 Private MD: Diagnosis: Acute suppurative otitis media with spontaneous rupture of ear drum, right ear;Other otitis externa, right ear Presentation: 06/11 16:54 Chief complaint: Patient states: Blowing my ear yesterday - felt a pop. Severe pain to ld1 right ear. Coronavirus screen: At this time, the client does not indicate any symptoms associated with coronavirus-19. Ebola Screen: No symptoms or risks identified at this time. Initial Sepsis Screen: Does the patient meet any 2 criteria? No. Patient's initial sepsis screen is negative. Does the patient have a suspected source of infection? No. Patient's initial sepsis screen is negative. Risk Assessment: Do you want to hurt yourself or someone else? Patient reports no desire to harm self or others. Onset of symptoms was June 11, 2024. 16:54 Method Of Arrival: Ambulatory ld1 16:54 Acuity: CLOVIS 4 ld1 Triage Assessment: 16:54 General: Appears in no apparent distress. uncomfortable, Behavior is cooperative, ld1 anxious. Pain: Complains of pain in right ear Pain does not radiate. Pain currently is 10 out of 10 on a pain scale. Quality of pain is described as throbbing, Pain began suddenly, Is continuous. EENT: Reports pain in right ear. Neuro: Level of Consciousness is awake, alert, obeys commands, Oriented to person, place, time, situation. Cardiovascular: Capillary refill < 3 seconds Patient's skin is warm and dry. Respiratory: Airway is patent Respiratory effort is even, unlabored. GI: Abdomen is round non-distended. : No signs and/or symptoms were reported regarding the genitourinary system. Derm: No signs and/or symptoms reported regarding the dermatologic system. Musculoskeletal: No signs and/or symptoms reported regarding the musculoskeletal system. Historical: - Allergies: 16:54 No Known Allergies; ld1 - PMHx: 16:54 Anxiety; Bipolar disorder; diabetes mellitus; Hypercholesterolemia; Hypertensive ld1 disorder; - PSHx: 16:54 section; Cholecystectomy; ld1 - Immunization history:: Adult Immunizations up to date. - Infectious Disease History:: Denies. - Social history:: Smoking status: Patient denies any tobacco usage or history of. Screenin:57 [facility] ED Fall Risk Assessment (Adult) History of falling in the last 3 months, ld1 including since admission No falls in past 3 months (0 pts) Confusion or Disorientation No (0 pts) Intoxicated or Sedated No (0 pts) Impaired Gait No (0 pts) Mobility Assist Device Used No (0 pt) Altered Elimination Score/Fall Risk Level 0 - 2 = Low Risk Oriented to surroundings, Hourly rounding (assess needs \T\ fall precautionary measures) done. Abuse screen: Denies threats or abuse. Denies injuries from another. Nutritional screening: No deficits noted. Tuberculosis screening: No symptoms or risk factors identified. Assessment: 16:57 Reassessment: See triage assessment. ERP in triage assessing patient. ld1 Vital Signs: 16:54 Pulse 91; Resp 18; Temp 98.1(TE); Pulse Ox 99% on R/A; Weight 81.65 kg; Height 4 ft. 10 ld1 in. ; Pain 9/10; 16:56 BP 182 / 126; ld1 16:54 Body Mass Index 37.62 (81.65 kg, 147.32 cm) ld1 16:54 Pain Scale: Adult ld1 ED Course: 16:38 Patient arrived in ED. cj3 16:38 Arabella Wallace PA-C is PHCP. sb4 16:38 Wade Prater DO is Attending Physician. sb4 16:54 Arm band placed on right wrist. ld1 16:55 Triage completed. ld1 16:57 Patient has correct armband on for positive identification. ld1 16:57 No provider procedures requiring assistance completed. Patient did not have IV access ld1 during this emergency room visit. 16:58 Raquel Rosado MD is Referral Physician. sb4 17:15 Marli Prater, BRANDON is Primary Nurse. ld1 Administered Medications: 17:00 Drug: Amoxicillin-Clavulanate PO 875 mg PO once Route: PO; ld1 17:15 Follow up: Response: No adverse reaction ld1 17:00 Drug: Hydrocodone-Acetaminophen PO (7.5 mg-325 mg) 1 tabs PO once Route: PO; ld1 17:15 Follow up: Response: No adverse reaction ld1 17:00 Drug: Ondansetron PO 4 mg PO once Route: PO; ld1 17:15 Follow up: Response: No adverse reaction ld1 Medication: 16:57 VIS not applicable for this client. ld1 Outcome: 16:58 Discharge ordered by . sb4 17:15 Discharged to home ambulatory, with family, ld1 17:15 Condition: stable 17:15 Discharge instructions given to patient, family, Instructed on discharge instructions, follow up and referral plans. medication usage, Demonstrated understanding of instructions, follow-up care, medications, Prescriptions given X 3, 17:16 Patient left the ED. ld1 Signatures: Marli Prater RN RN ld1 Arabella Wallace, PA-C PA-C sb4 Cherelle Suarez cj3
--- NOTE | 2024-06-11 16:59 | EDPHYS ---
Physician Documentation [facility] Name: Claribel Teague Age: 48 yrs Sex: Female : 1975 Arrival Date: 06/11/2024 Time: 16:35 Bed IW8 Private MD: ED Physician Wade Prater HPI: 06/11 17:04 This 48 yrs old Female presents to ER via Ambulatory with complaints of Ear sb4 Pain. 18:00 Nasal congestion for a few days now. States that yesterday felt fullness in her ears so sb4 she performed a Valsalva maneuver and heard and pop and has had pain in her right ear ever since. Denies any fever. Denies any prior otic pathologies. No discharge from the ear or bleeding. Historical: - Allergies: 16:54 No Known Allergies; ld1 - PMHx: 16:54 Anxiety; Bipolar disorder; diabetes mellitus; Hypercholesterolemia; Hypertensive ld1 disorder; - PSHx: 16:54 section; Cholecystectomy; ld1 - Immunization history:: Adult Immunizations up to date. - Infectious Disease History:: Denies. - Social history:: Smoking status: Patient denies any tobacco usage or history of. ROS: 18:00 Constitutional: Negative for fever, chills, and weight loss, sb4 18:00 ENT: Positive for ear pain, sinus congestion, 18:00 All other systems are negative, Exam: 18:00 Head/Face: Normocephalic, atraumatic. Eyes: Extra-ocular motions intact. Periorbital sb4 areas with no swelling, redness, or edema. Respiratory: No increased work of breathing, no retractions or nasal flaring. Skin: Warm, dry with normal turgor. Normal color with no rashes, no lesions, and no evidence of cellulitis. 18:00 Constitutional: The patient appears alert, awake, uncomfortable, 18:00 ENT: Ear canal(s): erythema, that is moderate, of the right canal, swelling, that is moderate, of the right canal, TM's: small perforation noted, Examination of the other ear shows no obvious abnormality, Vital Signs: 16:54 Pulse 91; Resp 18; Temp 98.1(TE); Pulse Ox 99% on R/A; Weight 81.65 kg; Height 4 ft. 10 ld1 in. ; Pain 9/10; 16:56 BP 182 / 126; ld1 16:54 Body Mass Index 37.62 (81.65 kg, 147.32 cm) ld1 16:54 Pain Scale: Adult ld1 MDM: 16:40 Medical Screening Exam initiated sb4 18:03 Data reviewed: vital signs, nurses notes, and as a result, I will discharge patient. sb4 Counseling: I had a detailed discussion with the patient and/or guardian regarding the historical points, exam findings, and any diagnostic results supporting the discharge/admit diagnosis, the presence of at least one elevated blood pressure reading (>120/80) during this emergency department visit, the need for outpatient follow up, an ENT specialist, to return to the emergency department if symptoms worsen or persist or if there are any questions or concerns that arise at home. Administered Medications: 17:00 Drug: Amoxicillin-Clavulanate PO 875 mg PO once Route: PO; ld1 17:15 Follow up: Response: No adverse reaction ld1 17:00 Drug: Hydrocodone-Acetaminophen PO (7.5 mg-325 mg) 1 tabs PO once Route: PO; ld1 17:15 Follow up: Response: No adverse reaction ld1 17:00 Drug: Ondansetron PO 4 mg PO once Route: PO; ld1 17:15 Follow up: Response: No adverse reaction ld1 Disposition: 17:46 I was immediately available on-site in the Emergency Department for consultation in the ms3 care of the patient. Disposition Summary: 06/11/24 16:58 Discharge Ordered Notes: Location: Home sb4 Problem: new sb4 Symptoms: have improved sb4 Condition: Stable sb4 Diagnosis - Acute suppurative otitis media with spontaneous rupture of ear drum, right ear sb4 - Other otitis externa, right ear sb4 Followup: sb4 - With: Raquel Rosado MD - When: 1 week - Reason: Recheck today's complaints, Re-evaluation by your physician Discharge Instructions: - Discharge Summary Sheet sb4 - Eardrum Rupture, Adult sb4 - Otitis Media, Adult sb4 - Otitis Externa, [id number] sb4 - Ear Drops, Adult, Fziu-[id number]-Cyen sb4 Forms: - Antibiotic Education sb4 - Patient Portal Instructions sb4 - Leadership Thank You Letter sb4 Prescriptions: - Amoxicillin 875 mg Oral Tablet - take 1 tablet ORAL route every 12 hours for 10 days; 20 tablet; Refills: 0, sb4 Product Selection Permitted - Ciprodex 0.3-0.1 % Otic drops, suspension - instill 4 drops OTIC route every 12 hours for 7 days , for ears ONLY; 1 sb4 Applicator; Refills: 0, Product Selection Permitted Signatures: Wade Prater DO DO ms3 Marli Prater RN RN ld1 Arabella Wallace PA-C PA-C sb4
[2024-06-11] MEDS ORDERED: AMOX/K CLAV 875 MG TAB ONE (17:12)
[2024-06-11] MEDS ORDERED: ONDANSETRON 4 MG (ODT) TAB ONE (17:13)
[2024-06-11] MEDS ORDERED: HYDROCODONE/APAP 7.5/325 MG TAB ONE (17:13)
[2024-06-12 06:45] VITALS: O2SAT 99
[2024-06-12 06:53] VITALS: TEMP 97.2
[2024-06-12 06:55] VITALS: BP 139/87
== END 2024-06-11 17:16 | disposition home or self-care (01) ==
LOC: ER 16:35
DX: H66.011 Acute suppurative otitis media with spontaneous rupture of ear drum, right ear (principal); H60.8X1 Other otitis externa, right ear
CPT/HCPCS: Q0162